=== PATIENT | female | born 1995 | race Caucasian/White ===

== ENCOUNTER 2018-06-28 21:34 | Emergency (ER) | payer BC ==
[~2018-06-28] VITALS: Ht 165.1 cm; Wt 95.3 kg
--- OUTSIDE RECORDS SUMMARY | 2018-06-28 21:38 | XMS REPORT | Summary of Care ---
Author Author [facility] Organization [facility] Address Unknown Phone Unavailable Encounter HQ Shira(MARILEE) [id number] Date(s): 08/31/16 - 08/31/16 [facility] [address] [employer] provided by [facility] [place] [address]- Discharge Diagnosis: Allergic reaction Discharge Disposition: Home or Self Care Attending Physician: Patria Painter MD Vital Signs 1 2 3 Most recent to oldest [Reference Range]: 165.1 cm (08/31/16 6:20 PM) Height 97.2 DegF (08/31/16 11:08 PM) 97.6 DegF (08/31/16 9:42 PM) 98.8 DegF (08/31/16 6:20 PM) Temperature Oral [96.4-99.1 DegF] 112/68 mmHg (08/31/16 11:08 PM) 115/74 mmHg (08/31/16 9:42 PM) 120/81 mmHg (08/31/16 6:20 PM) Blood Pressure [90-140/60-90 mmHg] 18 BRMIN (08/31/16 11:08 PM) 18 BRMIN (08/31/16 9:42 PM) 16 BRMIN (08/31/16 6:20 PM) Respiratory Rate [14-20 BRMIN] 98 bpm (08/31/16 11:08 PM) 103 bpm *HI* (08/31/16 9:42 PM) 100 bpm (08/31/16 6:20 PM) Peripheral Pulse Rate [60-100 bpm] 81.818 kg (08/31/16 6:20 PM) Weight 30.02 m2 (08/31/16 6:20 PM) Body Mass Index Problem List No data available for this section Allergies, Adverse Reactions, Alerts Substance Reaction Severity Status penicillins Active Medications Benadryl 25 mg oral tablet 25 mg=1 tab, PO, TID, X 5 day, # 15 tab, 0 Refill(s) Start Date: 08/31/16 Stop Date: 09/05/16 Status: Ordered Benadryl 25 mg oral tablet 25 mg=1 tab, PO, QID, X 5 day, # 20 tab, 0 Refill(s) Start Date: 08/31/16 Stop Date: 09/05/16 Status: Ordered EpiPen Auto-Injector 0.3 mg injectable kit 0.3 mg, IM, ONCE, # 2 pen(s), 0 Refill(s) Start Date: 08/31/16 Status: Ordered famotidine 20 mg, 2 mL, Route: IVP, Drug form: INJ, ONCE, Dosing Weight 81.818, kg, Priorit y: STAT, Start date: 08/31/16 19:06:00 CDT, Stop date: 08/31/16 19:06:00 CDT Notes: (Same as: Pepcid)Can be dilute in 5-10cc NS IVP: Slow IV push over at le ast 2 minutes. Start Date: 08/31/16 Stop Date: 08/31/16 Status: Completed famotidine 10 mg oral tablet 10 mg=1 tab, PO, BID, # 10 tab, 0 Refill(s) Start Date: 08/31/16 Stop Date: 09/05/16 Status: Ordered famotidine 10 mg oral tablet 10 mg=1 tab, PO, BID, # 10 tab, 0 Refill(s) Start Date: 08/31/16 Stop Date: 09/05/16 Status: Ordered Medrol Dosepak 4 mg oral tablet See Instructions, PO, Take by mouth as directed on label., # 1 Pack, 0 Refill(s) Start Date: 08/31/16 Stop Date: 09/06/16 Status: Ordered methylPREDNISolone SODium SUCCinate 125 mg, Route: IVP, ONCE, Dosing Weight 81.818, kg, Priority: STAT, Start date: 08/31/16 19:08:00 CDT, Stop date: 08/31/16 19:08:00 CDT Start Date: 08/31/16 Stop Date: 08/31/16 Status: Completed Results No data available for this section Immunizations No data available for this section Procedures No data available for this section Social History Social History Type Response Smoking Status Light tobacco smoker; Ready to change: No; Concerns about tobacco use in household: No; Exposure to Tobacco Smoke None; Cigarette Smoking Last 365 Days No; Reg Smoking Cessation Counseling No Assessment and Plan No data available for this section
--- OUTSIDE RECORDS SUMMARY | 2018-06-28 21:38 | XMS REPORT | Clinical Summary ---
Author Author [facility] Address Unknown Phone Unavailable Care Team Providers Care Operations Recruiter Name Role Phone Asked, No Pcp PCP Unavailable Allergies No Known Allergies Medications No known medications Active Problems Not on file Social History Date Tobacco Use Types Packs/Day Years Used Never Assessed Sex Assigned at Date Recorded Not on file Industry Job Start Date Occupation Not on file Not on file Not on file Travel End Travel History Travel Start No recent travel history available. Last Filed Vital Signs Not on file Plan of Treatment Health Maintenance Due Date Last Done Comments CHLAMYDIA SCREENING 2012 CERVICAL CANCER SCREENING 2017 INFLUENZA VACCINE 01/07/2018 Results Not on fileafter 06/27/2017 Insurance Payer Benefit Subscriber ID Type Phone Address Plan / Group BCBS BCBS xxxxxxxxxxxx PPO CHOICE PPO/FEDERA L EMPL PPO Advance Directives Patient has advance care planning documents on file. For more information, gloria lópez contact: Dom Perez [address] [place] [address]
--- OUTSIDE RECORDS SUMMARY | 2018-06-28 21:38 | XMS REPORT | Continuity of Care Document ---
Author Author [facility] Address Unknown Phone Unavailable Problems Problem Status Onset Date Classification Date Reported Comments Source Discharge Diagnosis: Allergic reaction 08/31/2016 09/03/2016 [facility] SEIZURES Active 08/31/2016 [facility] Medications Medication Details Route Status Patient Instructions Ordering Provider Order Date Source Famotidine 10 MG Oral Tablet 10 mg=1 tab, PO, BID, # 10 tab, 0 Refill(s) Active 09/01/2016 [facility] Diphenhydramine Hydrochloride 25 MG Oral Tablet [Benadryl] 25 mg=1 tab, PO, QID, X 5 day, # 20 tab, 0 Refill(s) Active 09/01/2016 [facility] Famotidine 10 MG Oral Tablet 10 mg=1 tab, PO, BID, # 10 tab, 0 Refill(s) Active 09/01/2016 [facility] 0.3 ML Epinephrine 1 MG/ML Prefilled Syringe [Epipen] 0.3 mg, IM, ONCE, # 2 pen(s), 0 Refill(s) Active 09/01/2016 [facility] Diphenhydramine Hydrochloride 25 MG Oral Tablet [Benadryl] 25 mg=1 tab, PO, TID, X 5 day, # 15 tab, 0 Refill(s) Active 09/01/2016 [facility] {21 (Methylprednisolone 4 MG Oral Tablet [Medrol]) } Pack [Medrol Dosepak] See Instructions, PO, Take by mouth as directed on label., # 1 Pack, 0 Refill(s) Active 09/01/2016 [facility] methylPREDNISolone SODium SUCCinate 125 mg, Route: IVP, ONCE, Dosing Weight 81.818, kg, Priority: STAT, Start date: 08/31/16 19:08:00 CDT, Stop date: 08/31/16 19:08:00 CDT Inactive 09/01/2016 [facility] Famotidine 20 mg, 2 mL, Route: IVP, Drug form: INJ, ONCE, Dosing Weight 81.818, kg, Priority: STAT, Start date: 08/31/16 19:06:00 CDT, Stop date: 08/31/16 19:06:00 CDTNotes: (Same as: Pepcid) Can be dilute in 5-10cc NS IVP: Slow IV push over at least 2 minutes. Inactive 09/01/2016 [facility] Allergies, Adverse Reactions, Alerts Substance Category Reaction Severity Reaction type Status Date Reported Comments Source penicillins Assertion Drug allergy Active [facility] Immunizations Immunization Date Given Site Status Last Updated Comments Source Results Order Name Results Value Reference Range Date Interpretation Comments Source Vital Signs Vital Sign Value Date Comments Source Temperature Oral (F) 97.2 F 09/01/2016 [facility] Systolic (mm Hg) 112 09/01/2016 [facility] Diastolic (mm Hg) 68 09/01/2016 [facility] Heart Rate 98 09/01/2016 [facility] Respitory Rate 18 09/01/2016 [facility] Systolic (mm Hg) 115 09/01/2016 [facility] Diastolic (mm Hg) 74 09/01/2016 [facility] Respitory Rate 18 09/01/2016 [facility] Heart Rate 103 09/01/2016 [facility] Temperature Oral (F) 97.6 F 09/01/2016 [facility] BMI Calculated 30.02 08/31/2016 [facility] Weight 81.818 08/31/2016 [facility] Temperature Oral (F) 98.8 F 08/31/2016 [facility] Height 165.1 cm 08/31/2016 [facility] Respitory Rate 16 08/31/2016 [facility] Systolic (mm Hg) 120 08/31/2016 [facility] Diastolic (mm Hg) 81 08/31/2016 [facility] Heart Rate 100 08/31/2016 [facility] Encounters Location Location Details Encounter Type Encounter Number Reason For Visit Attending Provider ADM Date DC Date Status Source [facility] Emergency [id number] Patria Painter 08/31/2016 09/01/2016 [facility] Procedures Procedure Code Date Perfomer Comments Source
[2018-06-28] MEDS ORDERED: ONDANSETRON HCL 4 MG ORAL DISINTEGRATING TAB PO ONE (22:15)
[2018-06-28 22:45] LABS: BACTERIA,URINE MODERATE /HPF; BILIRUBIN,URINE NEGATIVE (NEGATIVE); CLARITY,URINE CLOUDY (CLEAR); COLOR,URINE YELLOW (YELLOW); EPITHELIAL CELLS,URINE FEW /LPF; KETONES,URINE NEGATIVE (NEGATIVE); LEUKOCYTE ESTERASE ,URINE TRACE (NEGATIVE); NITRITE,URINE NEGATIVE (NEGATIVE); PROTEIN,URINE DIPSTICK 1+ (NEGATIVE); RBC,URINE 21-50 /HPF (0-5); URINE UROBILINOGEN 0.2 mg/dL (0.2 - 1); WBC,URINE (MAN) 21-50 /HPF (0-5)
[2018-06-28 22:46] LABS: PREGNANCY TEST, URINE NEGATIVE (NEGATIVE); RENAL EPITHELIAL CELLS,URINE FEW; TRANSITIONAL EPI CELLS,URINE FEW
--- NOTE | 2018-06-28 23:39 | Diagnostic Imaging Report ---
EXAM: CT ABDOMEN AND PELVIS without IV CONTRAST INDICATION: Vomiting, abdominal pain right flank pain COMPARISON: None TECHNIQUE: The abdomen and pelvis were scanned using a multidetector helical scanner. Coronal and sagittal reformations were obtained. Dose modulation, iterative reconstruction, and/or weight based adjustment of the mA/kV was utilized to reduce the radiation dose to as low as reasonably achievable. Routine protocol performed. IV Contrast: None Oral Contrast: None CTDIvol has been reviewed. It is below the limits set by the Radiation Protocol Committee (RPC). FINDINGS: LOWER THORAX: No consolidations LIVER: No masses BILIARY: Cholelithiasis without cholecystitis. SPLEEN: No masses PANCREAS: No masses ADRENALS: No nodules RIGHT KIDNEY: No nephroureterolithiasis or hydronephrosis. LEFT KIDNEY: No nephroureterolithiasis or hydronephrosis. GI TRACT: No wall thickening or obstruction. Normal appendix. VESSELS: None PERITONEUM/RETROPERITONEUM: No free air or fluid LYMPH NODES: No lymphadenopathy REPRODUCTIVE ORGANS: Normal BLADDER: Normal SOFT TISSUES: Normal BONES: No suspicious bone lesions. IMPRESSION: No nephroureterolithiasis or hydronephrosis. Cholelithiasis without cholecystitis. Signed by: Dr. Brooklynn Arnold M.D. on 06/28/2018 11:36 PM
[2018-06-29 00:02] VITALS: BP 118/71
== END 2018-06-29 00:10 | disposition home or self-care (01) ==
LOC: ER 21:34
DX: R10.30 Lower abdominal pain, unspecified (principal); R11.2 Nausea with vomiting, unspecified; N30.91 Cystitis, unspecified with hematuria
CPT/HCPCS: 74176; 81001; 81025; 99282

== ENCOUNTER 2018-08-02 15:19 | Emergency (ER) | payer BC ==
[~2018-08-02] VITALS: Ht 165.1 cm; Wt 95.3 kg
--- OUTSIDE RECORDS SUMMARY | 2018-08-02 15:22 | XMS REPORT | Clinical Summary ---
Author Author [facility] Address Unknown Phone Unavailable Care Team Providers Care Loss Prevention Operations Manager Name Role Phone Asked, No Pcp PCP [...] INFLUENZA VACCINE 01/07/2018 Results Not on fileafter 08/01/2017 Insurance Payer Benefit Subscriber ID Type Phone Address Plan / Group BCBS BCBS xxxxxxxxxxxx PPO CHOICE PPO/FEDJOSESITO L EMPL PPO Advance Directives Patient has advance care planning documents on file. For more information, gloria lópez contact: Dom Perez [address] [place] [address]
--- OUTSIDE RECORDS SUMMARY | 2018-08-02 15:22 | XMS REPORT ---
Author Author [facility] Address Unknown Phone Unavailable Care Team Providers Care Clinical Business Manager Name Role Phone Jaylen WRIGHT Unavailable Unavailable Problems This patient has no known problems. Allergies, Adverse Reactions, Alerts This patient has no known allergies or adverse reactions. Medications This patient has no known medications. Results Test Description Test Time Test Comments Text Results Atomic Results Result Comments CT ABDOMEN/PELVIS WO 2018-06-28 23:11:00 [place] [id number] Patient Name: USMAN RÍOS MR #: [id number] : 1995 Age/Sex: 22/F Req #: [id number] Adm Physician: Ordered by: JORGE WRIGHT MD Report #: [id number] Location: ER Room/Bed: Procedure: [id number] CT/CT ABDOMEN/PELVIS WO Exam Date: 06/28/18 Exam Time: 2312 REPORT STATUS: Signed EXAM: CT ABDOMEN AND PELVIS without IV CONTRAST I NDICATION: Vomiting, abdominal pain right flank pain COMPARISON: None TECHNIQUE: The abdomen and pelvis were scanned using a multidetector helical scanner. Coronal and sagittal reformations were obtained. Dose modulation, iterative reconstruction, and/or weight based adjustment of the mA/kV was utilized to reduce the radiation dose to as low as reasonably achievable. Routine protocol performed. IV Contrast: None Oral Contrast: None CTDIvol has been reviewed. It is below the limits set by the Radiation Protocol Committee (RPC). FINDINGS: LOWER THORAX: No consolidations LIVER: No masses BILIARY: Cholelithiasis without cholecystitis. SPLEEN: No masses PANCREAS: No masses ADRENALS: No nodules RIGHT KIDNEY: No nephroureterolithiasis or hydronephrosis. LEFT KIDNEY: No nephroureterolithiasis or hydronephrosis. GI TRACT: No wall thickening or obstruction. Normal appendix. VESSELS: None PERITONEUM/RETROPERITONEUM: No free air or fluid LYMPH NODES: No lymphadenopathy REPRODUCTIVE ORGANS: Normal BLADDER: Normal SOFT TISSUES: Normal BONES: No suspicious bone lesions. IMPRESSION: No nephroureterolithiasis or hydronephrosis. Cholelithiasis without cholecystitis. Signed by: Dr. Edgardo Mlceod M.D. on 06/28/2018 11:36 PM Dictated By: EDGARDO MCLEOD MD [id number] Transcribed By: NIR on 06/28/18 5311 COPY TO: JORGE WRIGHT MD
[2018-08-02] MEDS ORDERED: ACETAMINOPHEN/CODEINE ELIX 120-12 MG/5 ML UDC PO ONE (15:45)
[2018-08-02] MEDS ORDERED: DEXAMETHASONE SOD PHOS 10 MG/1 ML VIAL INJ ONE (15:45)
[2018-08-02] MEDS ORDERED: CEFTRIAXONE SOD 1 GM VIAL IM NR (16:15)
[2018-08-02] MEDS ORDERED: LIDOCAINE HCL 1% 2 ML AMP ONE (16:22)
[2018-08-02 16:38] LABS: STREPTOCOCCUS GRP A ANTIGEN NEGATIVE (NEGATIVE)
[2018-08-02 16:46] LABS: INFLUENZAE A&B ANTIGEN (RAPID) NEGATIVE (NEGATIVE)
--- NOTE | 2018-08-02 16:52 | NUR ---
PATIENT WITH WELTS, ITCHING. AFTER ROCEPHIN/DECADRON INJECTION RE-EVALUATED BY SID SERRATO/ROMEO HERRERA
[2018-08-02] MEDS ORDERED: DIPHENHYDRAMINE HCL 25 MG CAP PO NR (17:00)
[2018-08-02] MEDS ORDERED: FAMOTIDINE 20 MG TAB PO ONE (17:00)
--- NOTE | 2018-08-02 17:52 | NUR ---
RE-EVALUATED BY SID BURRIS
== END 2018-08-02 17:55 | disposition home or self-care (01) ==
LOC: ER 15:19
DX: H66.001 Acute suppurative otitis media without spontaneous rupture of ear drum, right ear (principal); J02.0 Streptococcal pharyngitis
CPT/HCPCS: 83518; 87070; 87400; 99283; J0696; J1100; J2001

== ENCOUNTER 2018-09-16 12:24 | Emergency (ER) | payer BC ==
[~2018-09-16] VITALS: Ht 165.1 cm; Wt 95.3 kg
--- OUTSIDE RECORDS SUMMARY | 2018-09-16 12:26 | XMS REPORT | Clinical Summary ---
Author Author [facility] Address Unknown Phone Unavailable Care Team Providers Care Rubber Goods Assembler Name Role Phone Asked, No Pcp PCP [...] 2012 CERVICAL CANCER SCREENING 2017 INFLUENZA VACCINE 01/07/2019 Results Not on fileafter 09/15/2017 Insurance Payer Benefit Subscriber ID Type Phone Address Plan / Group BCBS BCBS xxxxxxxxxxxx PPO CHOICE PPO/FEDJOSESITO L EMPL PPO Advance Directives Patient has advance care planning documents on file. For more information, gloria lópez contact: Dom Perez [address] [place] [address]
[2018-09-16] MEDS ORDERED: HYDROCODONE/APAP 10MG-325MG TAB PO ONE (14:15)
[2018-09-16] MEDS ORDERED: CEFTRIAXONE SOD 1 GM VIAL IM ONE (14:15)
[2018-09-16] MEDS ORDERED: AZITHROMYCIN 250 MG TAB PO ONE (14:15)
[2018-09-16 14:25] LABS: CLARITY,URINE SL CLOUDY (CLEAR); COLOR,URINE YELLOW (YELLOW)
[2018-09-16 14:26] LABS: BILIRUBIN,URINE NEGATIVE (NEGATIVE); KETONES,URINE NEGATIVE (NEGATIVE); LEUKOCYTE ESTERASE ,URINE TRACE (NEGATIVE); NITRITE,URINE NEGATIVE (NEGATIVE); PROTEIN,URINE DIPSTICK TRACE (NEGATIVE); URINE UROBILINOGEN 0.2 mg/dL (0.2 - 1)
[2018-09-16 14:29] LABS: PREGNANCY TEST, URINE NEGATIVE (NEGATIVE)
[2018-09-16 14:39] LABS: BACTERIA,URINE MANY /HPF; EPITHELIAL CELLS,URINE MODERATE /LPF; WBC,URINE (MAN) 0-5 /HPF (0-5)
== END 2018-09-16 15:04 | disposition home or self-care (01) ==
LOC: ER 12:24
DX: N76.4 Abscess of vulva (principal); R30.0 Dysuria; Z88.0 Allergy status to penicillin; Z88.8 Allergy status to other drugs, medicaments and biological substances
CPT/HCPCS: 81001; 81025; 87086; 99284; J0696

== ENCOUNTER 2020-05-05 09:11 | Emergency (ER) | payer BC ==
[~2020-05-05] VITALS: Ht 165.1 cm; Wt 111.1 kg
[~2020-05-05 09:11] MED LIST: ALLEGRA ALLERG180 MG PO; BENADRYL25 M1 PO; KEFLEX500 MG PO
[2020-05-05] MEDS ORDERED: SODIUM CHLORIDE 0.9% 1000ML 1,000 ML IV SCH (09:30)
[2020-05-05] MEDS ORDERED: ACETAMINOPHEN 325 MG TAB PO ONE (09:30)
--- NOTE | 2020-05-05 09:30 | Emergency Department Note ---
History of Present Illnes History of Present Illness Chief Complaint: COVID PUI History of Present Illness This is a 24 year old female Chief Complaint Comment Patient in from home with complaints of headache, sore throat, chest pain and difficulty breathing that started about 2 days ago. Patient's voice sounds weak and scratchy. Moaning when breathing. Historian: Patient Arrival Mode: Car Pipe Organ Builder Required: No Onset (how long ago): day(s) (2) Location: Chest Quality: Sharp Radiation: Reports non-radiation Severity: mild Onset quality: gradual Duration (how long): day(s) (2) Timing of current episode: constant Progression: worsening Chronicity: new Context: Denies recent illness, Denies recent surgery Relieving factors: none Exacerbating factors: none Associated symptoms: Reports denies other symptoms Treatments prior to arrival: none Past Medical/Family History Physician Review I have reviewed the patient's past medical and family history. Any updates have been documented here. Past Medical History Recent Fever: Yes Clinical Suspicion of Infectio: Yes New/Unexplained Change in Ment: No Past Medical History: Asthma, Anxiety, Depression Other Medical History: HPV Past Surgical History: T&A Other Surgery: TONSILLECTOMY ADENDIOECTOMY ACL AND MEDIAL MENSICUS REPAIR Social History Physically hurt or threatened: No Other Last Tetanus: UTD Review of Systems Review of Systems Constitutional: Reports no symptoms EENTM: Reports as per HPI, Reports throat pain Cardiovascular: Reports chest pain Respiratory: Reports as per HPI Gastrointestinal: Reports no symptoms Genitourinary: Reports no symptoms Musculoskeletal: Reports no symptoms Integumentary: Reports no symptoms Neurological: Reports no symptoms Psychological: Reports no symptoms Endocrine: Reports no symptoms Hematological/Lymphatic: Reports no symptoms Physical Exam Related Data Allergies: Coded Allergies: Penicillins (Verified Allergy, Severe, SWELLING, 09/16/18) clindamycin (Verified Allergy, Intermediate, rash, 05/05/20) loratadine (Verified Allergy, Intermediate, HIVES, 09/16/18) Triage Vital Signs Vital Signs Date Time Temp Pulse Resp B/P (MAP) Pulse Ox O2 Delivery O2 Flow Rate FiO2 05/05/20 09:16 98.5 90 17 112/89 100 Room Air Vital signs reviewed: Yes Physical Exam CONSTITUTIONAL Constitutional: Present well-developed, Present well-nourished HENT HENT: Present normocephalic, Present atraumatic, Present oropharynx clear/moist, Present nose normal HENT L/R: Present left ext ear normal, Present right ext ear normal EYES Eyes: Reports PERRL, Reports conjunctivae normal NECK Neck: Present ROM normal PULMONARY Pulmonary: Present effort normal, Present breath sounds normal CARDIOVASCULAR Cardiovascular: Present regular rhythm, Present heart sounds normal, Present capillary refill normal, Present normal rate GASTROINTESTINAL Abdominal: Present soft, Present nontender, Present bowel sounds normal GENITOURINARY Genitourinary: Present exam deferred SKIN Skin: Present warm, Present dry MUSCULOSKELETAL Musculoskeletal: Present ROM normal NEUROLOGICAL Neurological: Present alert, Present oriented x 3, Present no gross motor or sensory deficits PSYCHOLOGICAL Psychological: Present mood/affect normal, Present judgement normal Results Laboratory Lab results reviewed: Yes Imaging Imaging results reviewed: Yes Diagnostics Tests Diagnostic test(s) reviewed: Yes Procedures 12 Lead ECG Interpretation ECG Interpretation : Rhythm: sinus rhythm Rate: normal QRS axis: normal ST segments normal: Yes T waves normal: Yes Clinical Impression: normal ECG Assessment & Plan Medical Decision Making MDM 24-year-old female with no reported past medical history presents emergency department for sore throat and chest pain 2 days. She is a current every day smoker. Vital signs stable, within normal limits. Examination shows no stridor, full range of motion neck, benign oropharynx. Doubt retropharyngeal abscess, epiglottitis, other emergent pathology in the neck. Cardiopulmonary workup and d-dimer are significant for strep pharyngitis. Rx Azithro since patient is allergic to penicillin and clinda. Reassessment Reassessment time: 11:19 Reassessment Well appearing, NAD Assessment & Plan Final Impression: (1) Strep pharyngitis Depart Disposition: HOME, SELF-CARE Last Vital Signs Date Time Temp Pulse Resp B/P (MAP) Pulse Ox O2 Delivery O2 Flow Rate FiO2 05/05/20 09:16 98.5 90 17 112/89 100 Room Air Home Meds Reported Medications Cephalexin Monohydrate (KEFLEX) 500 Mg Capsule, PO TID for 15 Days 06/15/19 Fexofenadine Hcl (EBENEZER ALLERGY) 180 Mg Tablet, 180 MG PO DAILY 06/14/19 Diphenhydramine Hcl (BENADRYL) 25 Mg Capsule, 50 MG PO Q6H PRN for ITCHING 06/14/19 Medications in the ED Sodium Chloride 1,000 ml @ 0 mls/hr Q0M IV ; Start 05/05/20 at 09:30; Stop 05/05/20 at 10:29 Acetaminophen 975 mg ONCE ONCE PO ; Start 05/05/20 at 09:30; Stop 05/05/20 at 09:31 JENNIFER SAUNDERS MD May 05, 2020 09:30
[2020-05-05 09:33] LABS: BASOPHILS # (AUTO) 0.1 (0.0-0.1); BASOPHILS % 0.8 % (0.0-1.0); EOSINOPHILS # (AUTO) 0.5 (0.0-0.4); EOSINOPHILS % 4.5 % (0.0-6.0); HEMATOCRIT 37.3 % (34.2-44.1); HEMOGLOBIN 11.8 g/dL (12.0-16.0); LYMPHOCYTES # (AUTO) 3.1 (1.0-3.2); LYMPHOCYTES % 30.3 % (18.0-39.1); MEAN CORPUSCULAR HGB CONC 31.6 g/dL (31-35); MEAN CORPUSCULAR VOLUME 88.4 fL (81-99); MONOCYTES # (AUTO) 0.8 (0.2-0.8); MONOCYTES % 7.6 % (4.4-11.3); NEUTROPHILS # (AUTO) 5.7 (2.1-6.9); NEUTROPHILS % 56.6 % (38.7-80.0); PLATELET COUNT 343 x10e3/uL (140-360); RED BLOOD COUNT 4.22 x10e6/uL (3.6-5.1); RED CELL DISTRIBUTION WIDTH 14.1 % (11.7-14.4)
--- OUTSIDE RECORDS SUMMARY | 2020-05-05 09:41 | XMS REPORT | Clinical Summary ---
Author Author [facility] Address Unknown Phone Unavailable Care Team Providers Care Legal Writing Professor Name Role Phone Asked, No Pcp PCP Unavailable Allergies No Known Active Allergies Medications No known medications Active Problems Not on file Social History Date Tobacco Use Types Packs/Day Years Used Never Assessed Sex Assigned at Date Recorded Not on file Last Filed Vital Signs Not on file Plan of Treatment Health Maintenance Due Date Last Done Comments CHLAMYDIA SCREENING 01/18/2017 01/19/2016 CERVICAL CANCER SCREENING 2017 INFLUENZA VACCINE 01/08/2020 Results Not on fileafter 05/05/2019 Insurance Type Payer Benefit Subscriber ID Effective Phone Address Plan / Dates Group PPO BCBS BCBS [id number] 2016- CHOICE Present PPO/[place] PPO Advance Directives For more information, please contact: [phone] 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
--- OUTSIDE RECORDS SUMMARY | 2020-05-05 09:41 | XMS REPORT | Continuity of Care Document ---
Author Author [facility] t Organization [facility] Address [address] [place] [address] Phone Unavailable Care Team Providers Care Land Surveying Party Chief Name Role Phone NO, PCP PCP Unavailable PJ BOJORQUEZ Attphys Unavailable Lenore BENAVIDES, Pj Sousa Attphys Keyana BENAVIDES, David Thomason Attphys Zen BENAVIDES, Aleyda Attphys SID ZUNIGA Attphys Unavailable Jaylen WRIGHT Attphys Unavailable Sharlene Painter Attphys PJ BOJORQUEZ Admphys Unavailable Payers Payer Name Policy Type Policy Number Effective Date Expiration Date [employer] BLUE CROSS/BLUE SHIELDBCBS PPO POS EPO [id number], [place] [address]VTM [id number] 2019 00:00:00 [facility] [employer] [place] Ppo [id number] [address] [facility] Problems Condition Name Condition Details Condition Category Status Onset Date Resolution Date Last Treatment Date Treating Clinician Comments Source Cholecystitis Cholecystitis Disease Active 2019-06-30 00:00:00 [facility] SEIZURES SEIZ URES Active 08/31/2016 [facility] Diagnosis Active 2016-08-31 00:00:00 2016-09-06 13:23:00 [facility] All[facility], unspecified, initial encounter Allergy, unspecified, initial encounter 08/31/2016 09/03/2016 [facility] Problem 2016-08-31 05:00:00 2016-09-03 01:45:21 2016-09-03 01:45:21 [facility] Allergies, Adverse Reactions, Alerts Allergy Name Allergy Type Status Severity Reaction(s) Onset Date Inacti ve Date Treating Clinician Comments Source Penicillins Drug Allergy Active Shortness Of Breath 2019-06-30 00:00:00 Hives; throat swelling [facility] Ceftriaxone Drug Allergy Active Shortness Of Breath 2019-06-30 00:00:00 Throat swelling; hives [facility] Loratadine Propensity to adverse reactions Active 2019-06-10 1 00:00:00 [facility] cephalexin DA Active U 2019-06-18 00:00:00 [facility] ceftriaxone DA Active U 2019-06-18 00:00:00 [facility] Penicillins DA Active PR 2018-12-18 00:00:00 [facility] loratadine DA Active U 2018-12-18 00:00:00 [facility] loratadine DA Active U 2018-12-17 00:00:00 [facility] Penicillin Allergy to Substance Active Severe SWELLING 2018-09-16 00:0 0:00 [facility] Loratadine Allergy to Substance Active Moderate HIVES 2018-09-16 00:00:0 0 [facility] Penicillins DA Active PR 2014-11-23 00:00:00 [facility] penicillins penicillins Active [facility] Social History Social Habit Start Date Stop Date Quantity Comments Source History SDOH Alcohol Std Drinks [facility] History SDOH Alcohol Binge [facility] ASSERTION [facility] Sex Assigned At [facility] Cigarettes smoked current (pack per day) - Reported 00:00:00 2019-07-01 00:00:00 [facility] Cigarette pack-years 2019-07-01 00:00:00 2019-07-01 00:00:00 [facility] Tobacco use and exposure 2019-07-01 00:00:00 2019-07-01 00:00:00 Cecile seth used [facility] Alcohol intake 2019-07-01 00:00:00 2019-07-01 00:00:00 [facility] Alcohol Frequency 2019-06-30 00:00:00 2019-06-30 00:00:0 0 1 [facility] Smoking Status Start Date Stop Date Source Current every day smoker 2019-07-01 00:00:00 [facility] Social History 2016-09-01 00:10:37 Lainey abrry Medications Ordered Medication Name Filled Medication Name Start Date Stop Da te Current Medication? Ordering Clinician Indication Dosage Frequency Signature (SIG) Comments Components Source escitalopram oxalate (LEXAPRO) 10 MG tablet 2019-06-30 19:31:08 Yes 10mg QD Take 10 mg by mouth daily. [facility] acetaminophen-codeine (TYLENOL #3) 300-30 mg per tablet 2019-06-30 00:00:00 2019-07-10 23:59:00 No 1{tbl} Take 1 tablet by mouth every 4 (four) hours as needed for up to 10 days. Max Daily Amount: 6 tablets [facility] Famotidine 10 MG Oral Tablet 2016-09-01 03:41:00 Yes 10 mg = 1 tab, PO, BID, # 10 tab, 0 Refill(s) Lainey Kate Diphenhydramine Hydrochloride 25 MG Oral Tablet [Benadryl] 2016-09-01 03:41:00 Yes 25 mg = 1 tab, PO, QID, X 5 day , # 20 tab, 0 Refill(s) Lainey Kate Famotidine 10 MG Oral Tablet 2016-09-01 03:18:00 Yes 10 mg = 1 tab, PO, BID, # 10 tab, 0 Refill(s) Lainey Kate 0.3 ML Epinephrine 1 MG/ML Prefilled Syringe [Epipen] 2016-09-01 03:17:00 Yes 0.3 mg, IM, ONCE, # 2 pen(s), 0 Refill(s ) Lainey Kate Diphenhydramine Hydrochloride 25 MG Oral Tablet [Benadryl] 2016-09-01 03:17:00 Yes 25 mg = 1 tab, PO, TID, X 5 day , # 15 tab, 0 Refill(s) Lainey Humble {21 (Methylprednisolone 4 MG Oral Tablet [Medrol]) } Pack [M edrol Dosepak] 2016-09-01 03:17:00 Yes See Instructions, PO, Take by mouth as directed on label., # 1 Pack, 0 Refill(s) Lainey [address] methylPREDNISolone SODium SUCCinate 2016-09-01 00:08:00 No 125 mg, Route: IVP, ONCE, Dosing Weight 81.818, kg, Priority: STAT, Start date: 08/31/16 19:08:00 CDT, Stop date: 08/31/16 19:08:00 CDT Lainey [facility]ble Famotidine 2016-09-01 00:06:00 No Notes: (Same as: Pepcid) Can be dilute in 5-10cc NS IVP: Slow IV push over at least 2 minutes. Lainey Kate Cephalexin Monohydrate (Keflex) 500 Mg Capsule Cephale sruthi Monohydrate (Keflex) 500 Mg Capsule Yes Three Times A Day [facility] Diphenhydramine Hcl (Benadryl) 25 Mg Capsule Diphenhyd ramine Hcl (Benadryl) 25 Mg Capsule Yes 50 Every 6 Hours as needed for Itching [facility] Fexofenadine Hcl (Gabrielle Allergy) 180 Mg Tablet Fexof enadine Hcl (Gabrielle Allergy) 180 Mg Tablet Yes 180 Daily [facility] Vital Signs Vital Name Observation Time Observation Value Comments Source Systolic blood pressure 2019-06-30 16:25:00 127 mm[Hg] [facility] Diastolic blood pressure 2019-06-30 16:25:00 70 mm[Hg] [facility] Heart rate 2019-06-30 16:25:00 73 /min [facility] Body temperature 2019-06-30 16:25:00 37.22 Misty [facility] Respiratory rate 2019-06-30 16:25:00 14 /min [facility] Oxygen saturation in Arterial blood by Pulse oximetry 06-30 16:25:00 100 /min [facility] Body weight 2019-06-30 12:55:00 103.193 kg [facility] BMI 2019-06-30 12:55:00 37.86 kg/m2 [facility] Body height 2019-06-30 12:53:00 165.1 cm [facility] Temperature Oral (F) 2016-09-01 04:08:00 97.2 F [facility] Systolic (mm Hg) 2016-09-01 04:08:00 [facility] Diastolic (mm Hg) 2016-09-01 04:08:00 [facility] Heart Rate 2016-09-01 04:08:00 [facility] Respitory Rate 2016-09-01 04:08:00 [facility] Systolic (mm Hg) 2016-09-01 02:42:00 [facility] Diastolic (mm Hg) 2016-09-01 02:42:00 [facility] Respitory Rate 2016-09-01 02:42:00 [facility] Heart Rate 2016-09-01 02:42:00 [facility] Temperature Oral (F) 2016-09-01 02:42:00 97.6 F [facility] BMI Calculated 2016-08-31 23:20:00 [facility] Weight 2016-08-31 23:20:00 [facility] Temperature Oral (F) 2016-08-31 23:20:00 98.8 F [facility] Height 2016-08-31 23:20:00 165.1 cm [facility] Respitory Rate 2016-08-31 23:20:00 [facility] Systolic (mm Hg) 2016-08-31 23:20:00 [facility] Diastolic (mm Hg) 2016-08-31 23:20:00 [facility] [place] Heart Rate 2016-08-31 23:20:00 [facility] Procedures Procedure Date / Time Performed Performing Clinician [facility] e TISSUE EXAM 2019-06-30 15:04:00 Lars Bojorquez [facility] LAPAROSCOPY,CHOLECYSTECTOMY 2019-06-30 14:05:00 Lars Bojorquez [facility] POCT , URINE 2019-06-30 13:15:00 Travis Matute [facility] Computed tomography of brain without radiopaque contrast 00:00:00 MELLO MILLAN [facility] CT of abdomen and pelvis without contrast 2019-06-12 00:00:00 VA DM GUZMÁN [facility] US Gallbladder 2019-06-12 00:00:00 DM BREEN [facility] Plan of Care Planned Activity Planned Date Details Comments Source Future Scheduled Test 2020-02-08 00:00:00 INFLUENZA VACCINE (#1) [code = INFLUENZA VACCINE (#1)] [facility] Future Scheduled Test 2020-01-08 00:00:00 INFLUENZA VACCINE [code = INFLUENZA VACCINE] [facility] Future Scheduled Test 2017 00:00:00 Screening for monica gnant neoplasm of cervix (procedure) [code = 916424505] [facility] Future Scheduled Test 2017 00:00:00 Screening for monica gnant neoplasm of cervix (procedure) [code = 253958169] [facility] Future Scheduled Test 2017-01-18 00:00:00 CHLAMYDIA SCREENIN G [code = CHLAMYDIA SCREENING] [facility] Future Scheduled Test 2016 00:00:00 Lipid panel (proce dure) [code = 14800891] [facility] r Future Scheduled Test 2002 00:00:00 PNEUMOCOCCAL VACCI NE 0-64 YRS (1 of 1 - PPSV23) [code = PNEUMOCOCCAL VACCINE 0-64 YRS (1 of - PPSV23)] [facility] Encounters Start Date/Time End Date/Time Encounter Type Admission Type Att[facility] Care Department Encounter ID Source 2019-06-12 23:25:00 2019-06-15 18:22:00 Discharged Inpatient 1 SID ZUNIGA [facility] [id number] [facility] 2018-09-16 12:24:00 2018-09-16 15:04:00 Departed Emergency Room [facility] [id number] [facility] 2018-08-02 15:19:00 2018-08-02 17:55:00 Departed Emergency Room [facility] [id number] [facility] 2018-06-28 21:34:00 2018-06-29 00:10:00 Departed Emergency Room 1 JORGE WRIGHT [facility] [id number] [facility] 2016-08-31 18:09:00 2016-08-31 23:09:00 Outpatient Patria Painter [facility] [id number] Results Test Description Test Time Test Comments Results Result Comments Source Tissue Exam 2019-07-02 11:09:00 Test Item Case Report (test code = 104) Surgical Pathology Repor t Case: [id number] Authorizing Provider: Lars Bojorquez MD Collected: 06/30/2019 1504 Ordering Location: [facility] PERI[facility] Received: 06/30/2019 1648 SERVICES Pathologist: Renu Chahal MD Specimen: Gallbladder, gallbladder and contents DIAGNOSIS (test code = 3220) v0dalGGlWMQch0xsWCYraXHoObCbQpEvMsDmAqwukPDlYGglsvLhIJaua1WgB3UbWoGtSAwwapRpXWCw AcoyrpumSADnDAU2uzRlSTQyDPdcKPOuFNpmMg6nbRXrfKzrGjJqFUPlw7ktcuKXzpqhoTi1m2kxMAVe BgK9aCWlGBatM4vgzwWnmHQhIBGmXIb1fD91UBWqbU 0ojRLxXFsrpmVlYHoigdZewpYzPsn6QMShU9odDYMwHKHpJ0FlCQ0oUCQpZqq3PBI1WYG7yFggy4Q4wI OsmSCwuEdlCbZmZkWyEBHIk3NmHKv1pIwhS2NtMXOkJmV0kQOtXWOmXXleKUWgOYYxqxH5oO70MKuwkx O3wGCgr3Jxs32xc966tQ6itOKvSLQ3OBPrPQTohKOb OCHdEZM3WZSdgBUgA9o8LgWobIMmD0V3GhEblBKfX8Y6WjFaeHNrK3O4QxYufSEqCAFjbUTeVc5ttBSl dZAbqg6mgo20SAK4a9DlxRdxAPP9MPT3DlPqWl2pkKVdHVDcCL1aElJjuVGpLUCmgk05aAtbGHorscJi bC4rVoAoPTXkfGAsRVClXS8akBSbDMBzmW8zmmomKQ KxUfCqiovyDNXbuHqpypViXx4jgFbyPVF9HNnlS3mczQ7aObC8GHaxY2wrrU4uTRn9DZgfkZZ9ZFIjrC 5bIN6dbxshn4yjWuFaWG4oxeajg1exNcCpYY1miju2s5dmIpNjUO1mvholo8dnAvYbZNplJWYptrzwCX Qnq0LsqliwAYKtq8GwL0HvnLmlN81hrGozP56rTDXj oPvxxN8zbVlmyN6aOeHoUyTcWXoxeCavuZEyerpyJTdpnfVmZWYaQOqiSOZwJOUmRuNleISpEEDzkwUa iGnyfO8eJzPyFgTdBCwumSXntmbyMSkztoCeUHHdPPwQWMmMFEHRDHWZVBPLGP4AGMNJL0WZU1LWABo5 XHBhclxxbFxwbGFpblxmMFxmczIwXHBsYWluXGYxXG BoVcVpIRThKUTkUFLNHo5QRZCeO0kYKBJXFWUTNAVLJqDVIGCICRIZN8nQVRrUPTcDR4wHIOCNEAPLOT 3NFAWDPFPVOC6YWCXcWHXqBLupMMFoVTIlEvVmaNAieLmdfwBzZFljv3FiGZfgZDYlPW5deGrtCFNvJF 0gQNTgJ2mahT1eeiy9NnYwZUCxUyM1BVGrfrS7Oek0 BUMoOPwel2kuv0CfZNUvGHr6tUljYcOjRDRne3mwnxKvJlWoBBXhGXXzOWMwaTMcR832q6hhu3rtsqOw fSI9OMLwPBY9ZZsvvvUpmzK0PJzthPDqNuV5NDrbzxTrAXqmskLurmOuBkg5XHVfK864TOI9qNyoj7df FFC6FNQrSARqFmHoNt7lhSUkA878CIWtZMDNTVHsxU w2KIFeggStvcXvfYOUr849C252r6saTXWnxcFfxIsSndeyx1rdX526LUUvjRSurzHsDlUoRGZjwTFwpZ O4YARbQO5gpxocMHbrQWvgVGBmiiL9JKGvkSGqJ3XrKSTnZW7helhzIET1YLmaTOBbOHY0QvScDCQzd2 Hyerq1GvRegj6elr96XHD7z0GbbPduBVA0RDT0EaPo Jt1zrSRqMOZyNR5xFcEoaZRzNRStbf98qFouSQvdZVU3DAMsqxGpm9Jed3bqIlEumyXqZ3vmK9CwAEEg LUQmZBPzKvUojoYrj5Wuw4LldOKaqCu7h1ycIMMzFJHxnKann0xtSMX8VJQgxZQvL4depV7rNIAxER5z kmmvd9gmDJbqMBdkGHGgcTF2kpD0LKHbkKDbJ6ZrlA 7aUJVsKUfbIZAtcyl0EcVvVy6vyNFyoNyiQNbqLxwtLPbcNIDlcaIktsEsuCufQZXfVHYpIXkgGKFhWM zkULAkNNYuVkGfaElpjCQvArTsVuQbeTwzhXjlPUzlTmCoMZCnNUhkS6dvVaXyKyTfCys3XHPklIDdQD PsGqh4ZEMtiEUlKDBKlRukyN8yEIYnlBkveY8drSQ4 WLCfyuRjvRDLlS7mTLGUfB8rPvT5MDJeXyk9NHUiCkNirQDukN2= CPT Code(s) (test code = 3357) f9hfrADoLBNdbMLyHfTpHWDlSQFyn8ruSDHheAPnMuVbDsScLrOzXlprqZMvXZFfYfPxe8cxo397lQDc m9egCJOzQeD4dHFbFOXceAUgH522c1fkv2sqrrFfbPZ2CFVuWGJ6LNoqbrOujsX4VNkmfAUyZwJ0NZub nyGwKZkdsgRtxcQhRne7KSAsU496SPN7tSfyc7qyBA O5GCNwPRIzDaOvKl6bwWNwQ782YKNjDWGCEGJyhNp6JWWyksTqihXawCMBz284Q344o2ghMJQuwhFswW jVyxcur8vnL975UJOmlZRvrmKdKkXhPURelXQqpAR6ZRGjHG0tlpdyLaGrQU2eumfrHjHrTW1kxeq6Fk XwCO6bgctdMbKaQSjxEBUobdbbHBFoz4BmndlkYU2y L1Fjd2U3tY4seSBaKBAiwWIiMeMgJQKwcx7qsVNfPUaka7DkLJA4ekY5cLGepFNbUBBcOM63Seddm2Oh TfrvPXV2IXXaloDek8Udm5shNxWoqmSnT1ewN9JaBURpXCMbPPBsOeQvxpRpe6Xyn8EwcQJxuBu1i1jw LYBuZELvkGlxj3aoUIE5ZABhI1G7rNLeg3cgIOhcES GbyHJ8qiabRUoiPYPcpzK1bpbcKGipGBIuiEC0piuaXBteFBQnYrW7amouWFpyPTFwJRO3KVhgq320UX G9AEpbZxuhRMssYYVefiYkilNevBtqJGMwQRYnIWjeJUQuZBksEGXrOQCkSjXrkLdvjNwizM0kIxJvEn NgBHibBU9gRFSqE4zomPAxYHGqESKlK3ofIqBhjW4ftZfnPDypcpNkSOo2YnC2HGKmrz5= GROSS DESCRIPTION (test code = 3366) [file] BD9xFBRyb8M2cJEei83eBAVSTIRmAmSePFOcbs3= MICROSCOPIC DESCRIPTION (test code = 3371) o6cntKMsAIRgrGRzOwXwUHOxZEHue5edMZLhyZKgYiXzIfGeSwRaRgvxwJRkMIQeXjZou7ljd646lAAn u1sdIESkSvN0yBVaWDMemQXbL694e6wwh3qnrlLbuQS2MYWySLB8BYamtuKsvoD4LFwvcJDnLtZ0HWbz opTtHCmpxaDrdtTqPcu2YAPsI670QOE3qVnce5nbQK Z6CFRwHOYlZwEdIt1tbENkF428EMYaNIQJSVOvzGr7KNKzvtOyswClwESRh747B290x8udHIXsggRikN mNhcjoj4fgK086KIOlwLVuhiXaYgWrWVGtbBRmhQV0GTVaDV4sfyinUpKaWN7sytxwMzCbJZ3chyv3Wb RxQH0svkocDwUnCDukUCTsgkqzQIXxd7IykbgwHB5l J7Dln7S6nI8tePSyAKGtmNYjUwPwLOCheo2nlJDrYUmmw5VcPNG5ksD2pHXkiIGwNSRhOQ19Slckr9Ko EmhtGTE1DMDvuiYqo5Ttf8nqQqYpmuSwM3pyU2ZtYUXyOGAzZVOeQxIswoBfn9Gnx6QiwMCtcWu2j4jr WLIkUXAftSpjk1hrFJY8CCYaP5G4dNIfn0ayZFkyUD WdvQD9jdmqTSovXVGyvlE3eursYCmoKTIziIF3smhpZZznLBUdPtA1vyjbSJmoNCTfKMY7COoer945OH E3LCbpScsoCWjuZRFoeuNyzkGhiYjdMJSsRQYtCYueCPTzKQalGUIfIRKrDbXhsCpkeCkwtX9yOjLfHw IxDVchPN1oZYGaA9puqPJjWKMgSWJaI4qvUhPdgG9zqJrqVRiqwoHvFIRiqeVmbp3mRC8jsKWlaI== Gross assessment was performed at (test code = 2777) [facility], Department of Pathology, [address] [place] [address], Technical component was performed at (test code = 2778 ) [facility], Department of Pathology, [address] [place] [address], Professional component was performed at (test code = 2 779) [facility], Department of Pathology, [address] [place] [address], [facility] [id number] 11:09:00Surgical Pathology Report Case: [id number] Authorizing Provider: Lars Bojorquez MD Collected: 06/30/2019 1504 Ordering Location: [facility] PERIOPERATIVE Received: 06/30/2019 1648 SERVICES Pathologist: Renu Chahal MD Specimen: Gallbladder, gallbladder and contents A. GALLBLADDER, CHOLECYSTECTOMY: - CHRONIC CHOLECYSTITIS WITH CHOLELITHIASIS AND CHOLESTEROLOSIS. Signing Pathologist Direct Phone Line: [phone] signed by Renu Chahal MD on 07/02/2019 at 11:09 [id number] in formalin labeled "gallbladder" is a non-intact gallbladder measuring 6 x 2.5 x 1.5 cm. An attached cystic duct is present measuring 0.2 cm in length and 0.4 cm in diameter. The serosa of the gallbladder is yan-pink and unremarkable except for the area of disruption measuring 0.3 x 0.2 cm. On opening of the specimen red-yellow velvety mucosa is observed with yan-yellow excrescences (possible cholesterolosis). A calculus is observed obstructing the cystic duct measuring 0.4 x 0.3 x 0.2 cm. The gallbladder wall is serially se ctioned and no masses or lesions are identified. The wall thickness is up to 0. 3 cm. Rail Flaw Detector Operator sections are submitted in cassettes A1-A2.Ink code: Cysti c duct, hannah; hepatic bed, black; serosa, green.Section code: A1 cystic duct m argin and off premise service representative section of the gallbladder wall; A2 off premise service representative sec tion of the gallbladder wall adjacent to area of disruption. CYB/bc Performed.B [facility], Department of Pathology, [address] [place] [address], [facility], Department o f Pathology, [address] [place] [address], [facility], Department of Pathology, [address] [place] [address], DJTW , [id number] 13:22:00* Test Item Value Reference Range Interpretation Comments Test Urine, POC (test code = 1287914) Negative Control line present?, POC (test code = 8007065) Yes Background clear?, POC (test code = 7062532) Yes UPT Cassette Lot #, POC (test code = 0035888) [id number] UPT Cassette Expiration Date, POC (test code = 1862209) 11/06/20 Lab Interpretation (test code = 98132-5) Normal [facility] CT ABD PELVIS [id number] 19:47:00 Name: MICHOACANOUSMAN N [facility] : 1995 Age/S: 23 / F [address] [place] [address] Blvd Unit #: [id number] Loc: [place] [address] Phys: Karey Stoner [employer]OUR[employer]AD[employer] Acct: [id number] Di s Date: Status: REG ER PHONE #: Exam Date: 06/18/20191926 FAX #: Reason: abd pain EXAMS: CPT CODE: [id number] CT ABD PELVIS W/CONT 09221 Clinical Indication: abd pain Comparison: None TECHNIQUE: Helical imaging was perform ed after injection of IV contrast, from the lung base through the symphysi s with multiplanar reformations obtained. IV CONTRAST: 100 mL of Iso monica-300 GI CONTRAST: Oral contrast was administered. DLP: 777 mGy-cm FINDINGS: CT ABDOMEN AND PELVIS WITH CONTRAST: LUNG BASE: Atelectasis is seen at the lung bases. LIVER: The liver parenchyma is normal in appearance without masses or intrahepa tic biliary ductal dilatation. The portal vein is normal in caliber. BILIARY TREE: The common bile duct is normal in caliber without e vidence of filling defects. GALLBLADDER: Calcified stones are seen at the gallbladder neck. PANCREAS: The pancreas is unremarkable. The pancreatic duct is normal in caliber. SPLEEN: The spleen is normal in size and there are no parenchymal abnormalities. ADRENALS: The right adrenal gland is unremarkable. The left adrenal g land is unremarkable. KIDNEYS: Hypodensity with loss of cortical m edullary differentiation is seen in the right kidney, suggestive of acute pyelonephritis. There are no masses. There is no evidence of renal or uret eral calculi. There is no evidence of hydronephrosis. BOWEL: The visualized portion of the esophagus is unremarkable. The stomach is unremarkable. The small bowel is normal in caliber and there is no eviden ce of masses or obstruction. The colon is normal in caliber without any ma sses. APPENDIX: The appendix is unremarkable. PAGE 1 Signed Report (CONTINUED) Name: USMAN RÍOS [facility] : 1995 Age/S: 23 / F [address] [place] [address] Blvd Unit #: [id number] Loc: [place] [address] Phys: Kinjal Stoner [employer] Acct: [id number] Dis Date: Status: REG ER PHONE #: [phone] Exam Date: 06/18/20191926 FAX #: [phone] Reason: abd pain EXAMS: CPT CODE: [id number] CT ABD PELVIS W/CONT 30820 <Continued> PELVIS: There are no pelvic masses. The urinary bladder is unremarkable. The uterus and ovaries are unremarkable. PERITONEUM: There is no evidence for free intraperitoneal fluid or air. SOFT TISSUES: The soft tissues are unremarkable. There is no evidence of masses or hernias. LYMPH NODES: There is no evidence of mesenteric, retroperitoneal, or inguinal lymphadenopathy. VASCULATURE: The abdominal aorta is normal in caliber. The branches of the abdominal aorta are widely patent. MUSCULOSKELETAL: The visualized bony skeleton is unremarkable. IMPRESSION: 1. Acute right pyelonephritis. 2. Cholelithiasis without evidence of cholecystitis. 3. Normal appendix.. SL: GENNY at 1946 Reported and signed by: Sampson Orourke M.D. CC: Kinjal Stoner NP Technologist:Kaitlin Holden RT(R)(CT) CTDI: DLP: Trnscb Date/Time: 06/18/2019 (1946) [email or web address] Orig Print D/T: S: 06/18/2019 (1950) PAGE 2 Signed Report UA RFLX MICR CULT IF [id number] 19:15:00* Test Item Value Reference Range Interpretation Comments UA COLOR (test code = COLU) YELLOW YEL/STRAW UA APPEARANCE (test code = APPU) CLEAR CLEAR UA GLUCOSE DIPSTICK (test code = DGLUU) NEGATIVE NEGATIVE UA BILIRUBIN DIPSTICK (test code = BILU) NEGATIVE NEGATIVE UA KETONE DIPSTICK (test code = KETU) NEGATIVE NEGATIVE UA SPECIFIC GRAVITY (test code = SGU) 1.008 1.005-1.030 N UA BLOOD DIPSTICK (test code = SUSANA) NEGATIVE NEGATIVE UA PH DIPSTICK (test code = CHRIS) 7.0 5.0-7.0 N UA PROTEIN DIPSTICK (test code = PROU) NEGATIVE NEGATIVE UA UROBILINIOGEN DIPSTICK (test code = URO) 0.2 mg/dL 0.2-1.0 UA NITRITE DIPSTICK (test code = DEVORAH) NEGATIVE NEGATIVE UA LEUKOCYTE ESTERASE DIPSTICK (test code = LEUU) NEGATIVE NEGA TIVE UA WBC (test code = WBCU) 0-3 WBC/HPF 0-3 UA RBC (test code = RBCU) 0-3 RBC/HPF 0-3 UA WBC NO REFLEX (test code = WBCUCL) 0-3 WBC/HPF 0-3 UA BACTERIA (test code = BACU) NONE SEEN /HPF NONE SEEN UA SQUAMOUS CELLS (test code = SQU) 6-10 /HPF NONE SEEN A UA MUCUS (test code = MUCU) TRACE /LPF NONE SEEN Indication for culture: Suprapubic PainSpecimen Description: CLEAN CATCH BASIC METABOLIC [id number] 19:15:00* Test Item Value Reference Range Interpretation Comments SODIUM (test code = NA) 136 mEq/L 134-147 N POTASSIUM (test code = K) 3.8 mEq/L 3.4-5.0 N CHLORIDE (test code = CL) 107 mEq/L 100-108 N CARBON DIOXIDE (test code = CO2) 24 mEq/L 21-33 N ANION GAP (test code = GAP) 9 0-20 N GLUCOSE (test code = GLU) 99 mg/dL 70-110 N BLOOD UREA NITROGEN (test code = BUN) 9 mg/dL 7-18 N GLOMERULAR FILTRATION RATE (test code = GFR) 110-120 CREATININE (test code = CREAT) mg/dL 0.6-1.3 CALCIUM (test code = CA) 9.1 mg/dL 8.0-10.5 N HEPATIC FUNCTION [id number] 19:15:00* Test Item Value Reference Range Interpretation Comments TOTAL PROTEIN (test code = PROT) g/dL 6.4-8.2 ALBUMIN (test code = ALB) g/dL 3.4-5.0 BILIRUBIN TOTAL (test code = BILT) MG/DL <1.5 BILIRUBIN DIRECT (test code = BILD) MG/DL 0.0-0.30 SGOT/AST (test code = AST) IUnit/L 15-37 SGPT/ALT (test code = ALT) IUnit/L 15-65 ALKALINE PHOSPHATASE TOTAL (test code = ALKP) IUnit/L 20-125 [id number] 19:15:00* Test Item Value Reference Range Interpretation Comments LIPASE (test code = LIP) 79 IUnit/L 73-393 N HCG SERUM [id number] 19:15:00* Test Item Value Reference Range Interpretation Comments HCG SERUM QUAL (test code = HCGQL) SERUM NEGATIVE NEGATIVE BASIC METABOLIC [id number] 19:15:00* Test Item Value Reference Range Interpretation Comments SODIUM (test code = NA) 136 mEq/L 134-147 N POTASSIUM (test code = K) 3.8 mEq/L 3.4-5.0 N CHLORIDE (test code = CL) 107 mEq/L 100-108 N CARBON DIOXIDE (test code = CO2) 24 mEq/L 21-33 N ANION GAP (test code = GAP) 9 0-20 N GLUCOSE (test code = GLU) 99 mg/dL 70-110 N BLOOD UREA NITROGEN (test code = BUN) 9 mg/dL 7-18 N GLOMERULAR FILTRATION RATE (test code = GFR) 104.6 110-120 L Units of measure = ml/min/1.73 m2 CREATININE (test code = CREAT) 0.7 mg/dL 0.6-1.3 N CALCIUM (test code = CA) 9.1 mg/dL 8.0-10.5 N HEPATIC FUNCTION [id number] 19:15:00* Test Item Value Reference Range Interpretation Comments TOTAL PROTEIN (test code = PROT) 7.7 g/dL 6.4-8.2 N ALBUMIN (test code = ALB) 3.40 g/dL 3.4-5.0 N BILIRUBIN TOTAL (test code = BILT) 0.2 MG/DL <1.5 N BILIRUBIN DIRECT (test code = BILD) < 0.10 MG/DL 0.0-0.30 N BILIRUBIN INDIRECT (test code = BILIND) 0.10 MG/DL SGOT/AST (test code = AST) 21 IUnit/L 15-37 N SGPT/ALT (test code = ALT) 37 IUnit/L 15-65 N ALKALINE PHOSPHATASE TOTAL (test code = ALKP) 70 IUnit/L 20-125 N [id number] 19:15:00* Test Item Value Reference Range Interpretation Comments LIPASE (test code = LIP) 79 IUnit/L 73-393 N HCG SERUM [id number] 19:15:00* Test Item Value Reference Range Interpretation Comments HCG SERUM QUAL (test code = HCGQL) SERUM NEGATIVE NEGATIVE BASIC METABOLIC [id number] 19:08:00* Test Item Value Reference Range Interpretation Comments SODIUM (test code = NA) mEq/L 134-147 POTASSIUM (test code = K) mEq/L 3.4-5.0 CHLORIDE (test code = CL) mEq/L 100-108 CARBON DIOXIDE (test code = CO2) mEq/L 21-33 ANION GAP (test code = GAP) 0-20 GLUCOSE (test code = GLU) mg/dL 70-110 BLOOD UREA NITROGEN (test code = BUN) mg/dL 7-18 GLOMERULAR FILTRATION RATE (test code = GFR) 110-120 CREATININE (test code = CREAT) mg/dL 0.6-1.3 CALCIUM (test code = CA) mg/dL 8.0-10.5 HEPATIC FUNCTION [id number] 19:08:00* Test Item Value Reference Range Interpretation Comments TOTAL PROTEIN (test code = PROT) g/dL 6.4-8.2 ALBUMIN (test code = ALB) g/dL 3.4-5.0 BILIRUBIN TOTAL (test code = BILT) MG/DL <1.5 BILIRUBIN DIRECT (test code = BILD) MG/DL 0.0-0.30 SGOT/AST (test code = AST) IUnit/L 15-37 SGPT/ALT (test code = ALT) IUnit/L 15-65 ALKALINE PHOSPHATASE TOTAL (test code = ALKP) IUnit/L 20-125 [id number] 19:08:00* Test Item Value Reference Range Interpretation Comments LIPASE (test code = LIP) IUnit/L 73-393 HCG SERUM [id number] 19:08:00* Test Item Value Reference Range Interpretation Comments HCG SERUM QUAL (test code = HCGQL) SERUM NEGATIVE NEGATIVE CBC W/AUTO [id number] 18:59:00* Test Item Value Reference Range Interpretation Comments WHITE BLOOD CELL (test code = WBC) 11.54 x10 3/uL 4.5-11.0 H RED BLOOD CELL (test code = RBC) 3.82 x10 6/uL 3.54-5.02 N HEMOGLOBIN (test code = HGB) 10.8 g/dL 11.0-15.0 L HEMATOCRIT (test code = HCT) 33.4 % 33.0-45.0 N MEAN CELL VOLUME (test code = MCV) 87.4 fL 81.0-99.0 N MEAN CELL HGB (test code = MCH) 28.3 pg 27.0-33.0 N MEAN CELL HGB CONCETRATION (test code = MCHC) 32.3 g/dL 33.0-37. 0 L RED CELL DISTRIBUTION WIDTH CV (test code = RDW) 13.2 % 11.5- 14.5 N RED CELL DISTRIBUTION WIDTH SD (test code = RDW-SD) 42.1 fL 37 .0-54.0 N PLATELET COUNT (test code = PLT) 481 x10 3/uL 150-400 H MEAN PLATELET VOLUME (test code = MPV) 10.2 fL 7.0-9.0 H NEUTROPHIL % (test code = NT%) 55.2 % 56.0-77.0 L IMMATURE GRANULOCYTE % (test code = IG%) 0.8 % 0.0-2.0 N LYMPHOCYTE % (test code = LY%) 31.2 % 14.0-32.0 N MONOCYTE % (test code = MO%) 6.1 % 4.8-9.0 N EOSINOPHIL % (test code = EO%) 6.0 % 0.3-3.7 H BASOPHIL % (test code = BA%) 0.7 % 0.0-2.0 N NUCLEATED RBC % (test code = NRBC%) 0.0 % 0-0 N NEUTROPHIL # (test code = NT#) 6.38 x10 3/uL 2.0-7.6 N IMMATURE GRANULOCYTE # (test code = IG#) 0.09 x10 3/uL 0.00-0.03 H LYMPHOCYTE # (test code = LY#) 3.60 x10 3/uL 1.0-3.8 N MONOCYTE # (test code = MO#) 0.70 x10 3/uL 0.1-0.8 N EOSINOPHIL # (test code = EO#) 0.69 x10 3/uL 0.0-0.2 H BASOPHIL # (test code = BA#) 0.08 x10 3/uL 0.0-0.2 N NUCLEATED RBC # (test code = NRBC#) 0.00 x10 3/uL 0.0-0.1 N MANUAL DIFF REQUIRED (test code = MDIFF) NO LACTIC ACID [id number] 18:45:00* Test Item Value Reference Range Interpretation Comments LACTIC ACID POC (test code = LACTP) 1.1 MMOL/L 0.90-1.70 N Performed by certified stave log cut off saw operator at [facility] Sodium [id number] 05:46:00* Test Item Value Reference Range Interpretation Comments Sodium Level (test code = 2951-2) 138 136-145 [facility]Potassium Kwrpg3121-19-35 05:46:00* Test Item Value Reference Range Interpretation Comments Potassium Level (test code = 2823-3) 3.7 3.5-5.1 [facility] CenterChloride Sviif5681-52-75 05:46:00* Test Item Value Reference Range Interpretation Comments Chloride Level (test code = 2075-0) 107 98-107 [facility] CenterCarbon Dioxide Xqord3468-38-24 05:46:00* Test Item Value Reference Range Interpretation Comments Carbon Dioxide Level (test code = 2028-9) 22 22-29 [facility] CenterAnion Vgy9799-01-46 05:46:00* Test Item Value Reference Range Interpretation Comments Anion Gap (test code = 78378-2) 12.7 8-16 [facility] CenterBlood Urea Hntwyvap1178-17-28 05:46:00* Test Item Value Reference Range Interpretation Comments Blood Urea Nitrogen (test code = 3094-0) 5 7-26 L [facility] CenterCreatinine2020-01-07 05:46:00* Test Item Value Reference Range Interpretation Comments Creatinine (test code = 2160-0) 0.69 0.57-1.11 [facility] CenterBUN/Creatinine Yqgbu4260-01-20 05:46:00* Test Item Value Reference Range Interpretation Comments BUN/Creatinine Ratio (test code = 3097-3) 7 6-25 [facility] CenterEstimat Glomerular Filtration Rate 2019-06-15 05:46:00* Test Item Value Reference Range Interpretation Comments Estimat Glomerular Filtration Rate (test code = 911912904) > 60 >60 Ranges were taken from the National Kidney Disease Education Program and the [facility] literature.Reference ranges:60 or greater: Pwdkkz23-88 ( for 3 consecutive months): Chronic kidney disease 15 or less: Kidney failureMethodist Charlton Medical CenterGlucose Chivj5690-27-72 05:46:00* Test Item Value Reference Range Interpretation Comments Glucose Level (test code = FTY3451) 100 74-118 [facility] CenterCalcium Zyrvr6079-92-07 05:46:00* Test Item Value Reference Range Interpretation Comments Calcium Level (test code = 53925-9) 8.5 8.4-10.2 [facility] CenterWhite Blood Dojse2833-32-10 05:35:00* Test Item Value Reference Range Interpretation Comments White Blood Count (test code = 6690-2) 12.17 4.8-10.8 H [facility] CenterRed Blood Gxccq9840-86-79 05:35:00* Test Item Value Reference Range Interpretation Comments Red Blood Count (test code = 789-8) 3.18 3.6-5.1 L [facility] CenterHemoglobin2020-01-07 05:35:00* Test Item Value Reference Range Interpretation Comments Hemoglobin (test code = 51490-6) 8.9 12.0-16.0 L [facility] CenterHematocrit2020-01-07 05:35:00* Test Item Value Reference Range Interpretation Comments Hematocrit (test code = 4544-3) 27.9 34.2-44.1 L [facility] CenterMean Corpuscular Ijjooc7805-47-65 05:35:00* Test Item Value Reference Range Interpretation Comments Mean Corpuscular Volume (test code = 787-2) 87.7 81-99 VERIFIED PREVIOUS RESULTSMethodist Charlton Medical CenterMean Corpuscular Wdrnvcxezy9822-67-90 05:35:00* Test Item Value Reference Range Interpretation Comments Mean Corpuscular Hemoglobin (test code = 785-6) 28.0 28-32 [facility] CenterMean Corpuscular Hemoglobin Concent 2019-06-15 05:35:00* Test Item Value Reference Range Interpretation Comments Mean Corpuscular Hemoglobin Concent (test code = 786-4) 31.9 31-35 [facility] CenterRed Cell Distribution Ppvlo3562-51-49 05:35:00* Test Item Value Reference Range Interpretation Comments Red Cell Distribution Width (test code = 06543-8) 13.8 11.7 -14.4 [facility] CenterPlatelet Nieap3406-68-71 05:35:00* Test Item Value Reference Range Interpretation Comments Platelet Count (test code = 777-3) 235 140-360 [facility] CenterNeutrophils (%) (Auto)2019-06-15 05:35:00 * Test Item Value Reference Range Interpretation Comments Neutrophils (%) (Auto) (test code = 18711-0) 65.9 38.7-80.0 [facility] CenterLymphocytes (%) (Auto)2019-06-15 05:35:00 * Test Item Value Reference Range Interpretation Comments Lymphocytes (%) (Auto) (test code = 736-9) 20.7 18.0-39.1 [facility] CenterMonocytes (%) (Auto)2019-06-15 05:35:00* Test Item Value Reference Range Interpretation Comments Monocytes (%) (Auto) (test code = 5905-5) 11.3 4.4-11.3 [facility] CenterEosinophils (%) (Auto)2019-06-15 05:35:00 * Test Item Value Reference Range Interpretation Comments Eosinophils (%) (Auto) (test code = 713-8) 1.4 0.0-6.0 [facility] CenterBasophils (%) (Auto)2019-06-15 05:35:00* Test Item Value Reference Range Interpretation Comments Basophils (%) (Auto) (test code = 706-2) 0.3 0.0-1.0 [facility] CenterIM GRANULOCYTES %2019-06-15 05:35:00* Test Item Value Reference Range Interpretation Comments IM GRANULOCYTES % (test code = IM GRANULOCYTES %) 0.4 0.0- 1.0 [facility] CenterNeutrophils # (Auto)2019-06-15 05:35:00* Test Item Value Reference Range Interpretation Comments Neutrophils # (Auto) (test code = 751-8) 8.0 2.1-6.9 H [facility] CenterLymphocytes # (Auto)2019-06-15 05:35:00* Test Item Value Reference Range Interpretation Comments Lymphocytes # (Auto) (test code = 97246-3) 2.5 1.0-3.2 [facility] CenterMonocytes # (Auto)2019-06-15 05:35:00* Test Item Value Reference Range Interpretation Comments Monocytes # (Auto) (test code = 742-7) 1.4 0.2-0.8 H [facility] CenterEosinophils # (Auto)2019-06-15 05:35:00* Test Item Value Reference Range Interpretation Comments Eosinophils # (Auto) (test code = 711-2) 0.2 0.0-0.4 [facility] CenterBasophils # (Auto)2019-06-15 05:35:00* Test Item Value Reference Range Interpretation Comments Basophils # (Auto) (test code = 704-7) 0.0 0.0-0.1 [facility] CenterAbsolute Immature Granulocyte (auto 2019-06-15 05:35:00* Test Item Value Reference Range Interpretation Comments Absolute Immature Granulocyte (auto (bridger t code = Absolute Immature Granulocyte (auto) 0.05 0-0.1 [facility] CenterBlood Kqtnalz9336-18-84 19:37:00* Test Item Value Reference Range Interpretation Comments Blood Culture (test code = 26369118) NO GROWTH AFTER 48 HOURS [facility] CenterMagnesium Cbqok6524-56-69 12:36:00* Test Item Value Reference Range Interpretation Comments Magnesium Level (test code = 01791-8) 1.8 1.3-2.1 [facility] CenterUrine Zcsxdsq6160-73-59 09:37:00* Test Item Value Reference Range Interpretation Comments Urine Culture (test code = 630-4) No Result Data Provided [facility] CenterLactic Acid Bqqjj4211-45-87 23:29:00* Test Item Value Reference Range Interpretation Comments Lactic Acid Level (test code = Lactic Acid Level) 1.3 0.5- 2.0 [facility] CenterUS ANGUBERNMFU4509-61-63 22:43:00 [place] [address] Patient Name: USMAN RÍOS MR #: [id number] : 1995 Age/Sex: 23/F Req #: [id number] Adm Physician: Ordered by: DM BREEN NP Report #: [id number] Location: ER Room/Bed: Procedure: 0104-0 002 US/US GALLBLADDER Exam Date: 06/12/19 Exam Time: 2113 REPORT STATUS: Signed EXAM: Right Upper Quadrant Ultrasound with Doppler INDICATION: Right upper quadr ant pain COMPARISON: Abdominal CT 06/12/2019 TECHNIQUE: Transverse and l ongitudinal images of the right upper abdomen were obtained. Grayscale, color Doppler and spectral waveform analysis of the hepatic vasculature and splenic vein were performed. FINDINGS: Liver: Size: 15.6 cm in the r ight midclavicular line, normal Appearance: Normal echogenicity, smooth c ontour Mass: No focal masses Gallbladder: Stones/Sludge: None Wall: 0.36 cm, slightly thickened due to gallbladder contracted. Appearance: No pericholecystic fluid or hydrops. Sonographic Song's S ign: Negative Bile Ducts: Intrahepatic Ducts: No dilatation E xtrahepatic Ducts: Common bile duct measures 0.4 cm, no dilatation Pancreas : Visualized portions of the pancreatic head, neck and proximal body are normal. Right Kidney: Size: 12.7 cm Echogenicity: Normal Parenchymal thickness: Normal Collecting system: No hydronephrosis Stones: None Cyst/Mass: None Vessels: Main Portal V ein: Diameter: 0.9 cm, normal. Normal flow direction. Aorta: Visualized p ortions are normal Inferior Vena Cava: Visualized portions are normal Free Fluid: No ascites or pleural effusion IMPRESSION: The gallstone at the gallbladder neck seen on same-day abdominal CT is not seen on this sonographically. The gallbladder is partially contracted, acute obstruc tive cholecystitis is very unlikely. No acute sonographic abnormalities in the right upper quadrant. Signed by: Oscar Reynolds DO on 06/12/2019 10:4 7 PM Dictated By: OSCAR REYNOLDS DO 46 Transcribed By: NIR on 06/12/192246 COPY TO: DM BREEN NP CT ABDOMEN/PELVIS [id number] 21:00:00 [place] [address] Patient Name: USMAN RÍOS MR #: [id number] : 1995 Age/Sex: 23/F Req #: [id number] Adm Physician: Ordered by: DM BREEN NP Report #: [id number] Location: ER Room/Bed: Procedure: 0104-[address]/CT ABDOMEN/PELVIS WO Exam Date: 06/12/19 Exam Time: 2004 REPORT STATUS: Signed EXAM: CT Abdomen and Pelvis WITHOUT contrast INDICATION: Abdominal pain, b ack pain COMPARISON: Abdominal CT 06/28/2018 TECHNIQUE: Abdomen and pelvis were scanned utilizing a multidetector helical scanner from the lung base to t he pubic symphysis without administration of IV contrast. Absence of intraveno us contrast decreases sensitivity for detection of focal lesions and vascular pathology. Coronal and sagittal reformations were obtained. Routine protocol w as performed. IV CONTRAST: None ORAL CONTRAST: None COMPLICATIONS: None RADIATION DOSE: Total DLP: 776 mGy*cm Estimated effective dose: (DLP x 0.015 x size factor) mSv CTDIvol has be en reviewed. It is below the limits set by the Radiation Protocol Committee (R PC). Dose modulation, iterative reconstruction, and/or weight based adjus tment of the mA/kV was utilized to reduce the radiation dose to as low as reas onably achievable. FINDINGS: LINES and TUBES: None. LOWER THOR AX: Bibasilar underaeration. HEPATOBILIARY: No focal hepatic lesions . No biliary ductal dilation. GALLBLADDER: Small calcified gallstone. No wall thickening or pericholecystic fluid. No overdistention. SPLEEN: No s plenomegaly. PANCREAS: No focal masses or ductal dilatation. ADRENA LS: No adrenal nodules KIDNEYS/URETERS: No hydronephrosis. No cystic o r solid mass lesions. No stones. Mild right perinephric fat stranding an d new mild prominence of right renal pelvis. GI TRACT: No abnormal disten tion, wall thickening, or evidence of bowel obstruction. Appendix is nor mal. PELVIC ORGANS/BLADDER: Trace perivesicular fat stranding, otherwise ur inary bladder unremarkable. Normal appearance of the uterus and ovaries. LYMPH NODES: No lymphadenopathy. VESSELS: Unremarkable. PERITONEUM / R ETROPERITONEUM: No free air or fluid. BONES: Unremarkable. SOFT TISSUE S: Unremarkable. IMPRESSION: 1. Findings suggestive of r ight polynephritis. No obstructing stone or lesion identified. 2. Cholelith iasis without evidence of acute obstructive cholecystitis. Signed by: Heber Reynolds DO on 06/12/2019 9:05 PM Dictated By: OSCAR REYNOLDS DO Elect ronically Signed By: OSCAR REYNOLDS DO on 06/12/192104 Transcribed By: ANIA BURROWS on 06/12/192104 COPY TO: DM BREEN [employer] Amylase Level 2019-06-12 20:03:00* Test Item Value Reference Range Interpretation Comments Amylase Level (test code = 1798-8) 30 25-125 [facility] CenterLipase2020-01-04 20:03:00* Test Item Value Reference Range Interpretation Comments Lipase (test code = 3040-3) 12 8-78 [facility] CenterUrine Dbwy6657-96-97 19:37:00* Test Item Value Reference Range Interpretation Comments Urine Test (test code = 2106-3) NEGATIVE NEGATIVE [facility] CenterUrine Opiates Csarfz9916-46-44 19:09:00* Test Item Value Reference Range Interpretation Comments Urine Opiates Screen (test code = 74040-0) NEGATIVE NEGATIVE ALL TESTS PERFORMED MANUALLY ON BIORAD TOX/SEE TESTMethodist Charlton Medical CenterUrine Barbiturates Dglrdc4932-89-08 19:09:00* Test Item Value Reference Range Interpretation Comments Urine Barbiturates Screen (test code = 125989037) NEGATIVE NEGA TIVE [facility] CenterUrine Phencyclidine Dzirte1155-10-70 19:09:00* Test Item Value Reference Range Interpretation Comments Urine Phencyclidine Screen (test code = 13890-9) NEGATIVE NEGAT OLIVIA [facility] CenterUrine Amphetamines Yhhooj9154-42-74 19:09:00* Test Item Value Reference Range Interpretation Comments Urine Amphetamines Screen (test code = 04779-2) NEGATIVE NEGATI VE [facility] Methamphetamines Jdkgfe7656-96-66 19:09:00* Test Item Value Reference Range Interpretation Comments Urine Methamphetamines Screen (test code = Urine Metha mphetamines Screen) NEGATIVE NEGATIVE [facility] CenterUrine Benzodiazepines Njdzpa9567-12-12 19:09:00* Test Item Value Reference Range Interpretation Comments Urine Benzodiazepines Screen (test code = 90958-4) NEGATIVE NEG ATIVE [facility] CenterUrine Cocaine Ulyiwz4119-22-04 19:09:00* Test Item Value Reference Range Interpretation Comments Urine Cocaine Screen (test code = 3398-5) NEGATIVE NEGATIVE [facility] CenterUrine Cannabinoids Vnnvbh0754-98-07 19:09:00* Test Item Value Reference Range Interpretation Comments Urine Cannabinoids Screen (test code = 08303-1) NEGATIVE NEGATI VE THESE RESULTS ARE FOR MEDICAL TREATMENT ONLYTHIS REPORT CONTAINS UNCONFIR MED SCREENING RESULTS*POSITIVE RESULTS WILL BE CONFIRMED BY REFERENCE LAB UPON R EQUEST CUT-OFFDRUG CLASS CONCENTRATION ng/mLAmphetamines 1000Methamphetamines 1000Cocaine 300Opiate 300Phencyc lidine 25Cannabinoid 50Barbiturates 300Benzodiazepine [address] CenterU[facility] Methadone Ivqjjy3229-09-42 19:09:00* Test Item Value Reference Range Interpretation Comments Urine Methadone Screen (test code = 05412-6) NEGATIVE NEGATIVE THESE RESULTS ARE FOR MEDICAL TREATMENT ONLYTHIS REPORT CONTAINS UNCONFIR MED SCREENING RESULTS*POSITIVE RESULTS WILL BE CONFIRMED BY REFERENCE LAB UPON R EQUEST CUT-OFFDRUG CLASS CONCENTRATION ng/mLAmphetamines 1000Methamphetamines 1000Cocaine Metabolite 300Opiate 300Phencyc lidine 25Cannabinoid 50Barbiturates 300Benzodiazepine [address] CenterUrine Dsiwj7351-07-25 19:08:00* Test Item Value Reference Range Interpretation Comments Urine Color (test code = 5778-6) YELLOW YELLOW [facility] CenterUrine Ewskpdh5029-39-60 19:08:00* Test Item Value Reference Range Interpretation Comments Urine Clarity (test code = 30403-3) CLEAR CLEAR [facility] CenterUrine Specific Lyjdivj1473-16-34 19:08:00 * Test Item Value Reference Range Interpretation Comments Urine Specific [place] (test code = 5811-5) 1.005 1.010-1.02 5 L [facility] CenterUrine [id number] 19:08:00* Test Item Value Reference Range Interpretation Comments Urine pH (test code = 76463-4) 6.5 5-7 [facility] CenterUrine Leukocyte Yxegxcrq1786-06-52 19:08:00* Test Item Value Reference Range Interpretation Comments Urine Leukocyte Esterase (test code = 5799-2) TRACE NEGATIVE H [facility] CenterUrine Zkywywp8118-35-76 19:08:00* Test Item Value Reference Range Interpretation Comments Urine Nitrite (test code = 25178-0) NEGATIVE NEGATIVE [facility] CenterUrine Bkegfup7849-69-63 19:08:00* Test Item Value Reference Range Interpretation Comments Urine Protein (test code = 5804-0) TRACE NEGATIVE H [facility] CenterUrine Glucose (UA)2019-06-12 19:08:00* Test Item Value Reference Range Interpretation Comments Urine Glucose (UA) (test code = 2349-9) NEGATIVE NEGATIVE [facility] CenterUrine Xkmxnvs2558-11-82 19:08:00* Test Item Value Reference Range Interpretation Comments Urine Ketones (test code = 98585-2) NEGATIVE NEGATIVE [facility] CenterUrine Wmxgjqwjbevq4249-25-79 19:08:00* Test Item Value Reference Range Interpretation Comments Urine Urobilinogen (test code = 28178-5) 1 0.2-1 [facility] CenterUrine Iigsdclwt2913-47-13 19:08:00* Test Item Value Reference Range Interpretation Comments Urine Bilirubin (test code = 1978-6) SMALL NEGATIVE [facility] CenterUrine Xfbrz9350-10-47 19:08:00* Test Item Value Reference Range Interpretation Comments Urine Blood (test code = 85599-4) TRACE NEGATIVE H [facility] CenterUrine YJR1736-60-78 19:08:00* Test Item Value Reference Range Interpretation Comments Urine WBC (test code = 5821-4) 6-10 0-5 H [facility] CenterUrine MKU0534-73-88 19:08:00* Test Item Value Reference Range Interpretation Comments Urine RBC (test code = 98981-7) 6-10 0-5 H [facility] CenterUrine Xjqbiabq3134-61-82 19:08:00* Test Item Value Reference Range Interpretation Comments Urine Bacteria (test code = 39364-0) RARE NONE [facility] CenterUrine Epithelial Tstdv4800-66-86 19:08:00 * Test Item Value Reference Range Interpretation Comments Urine Epithelial Cells (test code = 22375-6) FEW NONE [facility] CenterCreatine Firyci8778-58-40 18:49:00* Test Item Value Reference Range Interpretation Comments Creatine Kinase (test code = 2157-6) 46 29-168 [facility] CenterCreatine Kinase YT5340-59-32 18:49:00* Test Item Value Reference Range Interpretation Comments Creatine Kinase MB (test code = 49071-6) 0.50 0-5.0 [facility] CenterTroponin [id number] 18:49:00* Test Item Value Reference Range Interpretation Comments Troponin I (test code = PUC7163) 0.004 0-0.300 [facility] CenterCT BRAIN VM7662-41-05 18:36:00 [facility] [address] [place] [address] Patient Name: USMAN RÍOS MR #: [id number] : 1995 Age/Sex: 23/F Req #: [id number] Adm Physician: Ordered by: MELLO MILLAN DO Report #: [id number] Location: ER Room/Bed: Procedure: 0104-[address]/CT BRAIN WO Exam Date: 06/12/19 Exam Time: REPORT STATUS: Signed EXAMINA TION: Head CT HISTORY: Possible seizures, shaking. COMPARISON: None. T ECHNIQUE: Multidetector axial images were obtained without contrast from the f oramen magnum to the vertex . The images were reconstructed using brain and paula ne algorithms. Thin section brain images were reformatted into coronal and sa gittal planes. Image quality: Motion/streaking artifact limits the evaluation of the skull base and posterior cranial fossa. Dose modulation, iterative re construction, and/or weight based adjustment of the mA/kV was utilized to redu ce the radiation dose to as low as reasonably achievable. FINDINGS: Parenchyma: 1. No abnormal densities. 2. No mass or hemorrhage. No CT evidence of acute territorial vascular insult. Extra-axial spaces:No abnormal density. No extra-axial fluid collections Brain volu me: Normal for age. Ventricles: No hydrocephalus or displacement. Arteries: No density suggestive of thrombus. Dural sinuses: No abnorm al density. Extra-axial spaces: No abnormal density. Foramen mag num: No mass, Chiari malformation, or basilar invagination. Sella: No ob vious mass. Paranasal/mastoid sinuses: Mild mucosal inflammatory thicke kika of the partially visualized ethmoid all and sphenoid sinuses. Sku ll/Scalp: No lytic or blastic lesions. No fractures. IMPRESSION: No intracranial abnormalities. Signed by: Dr. Nilda Jung M.D. on 06/12/2019 6: 38 PM Dictated By: NILDA JUNG MD 37 Transcribed By: NIR on 06/12/191837 COPY TO: MELLO MATIAS DO Total Whcjncuqe0182-60-11 18:33:00* Test Item Value Reference Range Interpretation Comments Total Bilirubin (test code = 1975-2) 0.2 0.2-1.2 [facility] CenterAspartate Amino Transf (AST/SGOT) 2019-06-12 18:33:00* Test Item Value Reference Range Interpretation Comments Aspartate Amino Transf (AST/SGOT) (test code = Aspartate Amino Transf (AST/SGOT)) 20 5-34 [facility] CenterAlanine Aminotransferase (ALT/SGPT) 2019-06-12 18:33:00* Test Item Value Reference Range Interpretation Comments Alanine Aminotransferase (ALT/SGPT) (test code = 1742-6) 26 0-55 [facility] CenterTotal Suwqooj5215-12-62 18:33:00* Test Item Value Reference Range Interpretation Comments Total Protein (test code = 2885-2) 7.7 6.5-8.1 [facility] CenterAlbumin2020-01-04 18:33:00* Test Item Value Reference Range Interpretation Comments Albumin (test code = 1751-7) 3.6 3.5-5.0 [facility]obulin2020[facility] 18:33:00* Test Item Value Reference Range Interpretation Comments Globulin (test code = 03077-8) 4.1 2.3-3.5 H [facility]Album[facility]/Globulin Kzawa7321-82-21 18:33:00 * Test Item Value Reference Range Interpretation Comments Albumin/Globulin Ratio (test code = 1759-0) 0.9 0.8-2.0 [facility] CenterAlkaline Cuqzzsnilsn8342-36-78 18:33:00* Test Item Value Reference Range Interpretation Comments Alkaline Phosphatase (test code = 6768-6) 74 40-150 [facility] [id number] 14:39:00* Test Item Value Reference Range Interpretation Comments Urine WBC (test code = 5821-4) 0-5 0-5 [facility] [id number] 14:39:00* Test Item Value Reference Range Interpretation Comments Urine RBC (test code = 56635-3) NONE 0-5 [facility] Afjievid0893-11-34 14:39:00* Test Item Value Reference Range Interpretation Comments Urine Bacteria (test code = 90658-2) MANY NONE H [facility] Epithelial Uwuts7947-89-66 14:39:00 * Test Item Value Reference Range Interpretation Comments Urine Epithelial Cells (test code = 08460-0) MODERATE NONE [facility] Yoyo8888-78-18 14:30:00* Test Item Value Reference Range Interpretation Comments Urine Test (test code = 2106-3) NEGATIVE NEGATIVE [facility] Wyawr5597-95-55 14:26:00* Test Item Value Reference Range Interpretation Comments Urine Color (test code = 5778-6) YELLOW YELLOW [facility] Awewmdn0453-16-03 14:26:00* Test Item Value Reference Range Interpretation Comments Urine Clarity (test code = 52489-4) SL CLOUDY CLEAR [facility] Specific Ugxefug9343-06-93 14:26:00 * Test Item Value Reference Range Interpretation Comments Urine Specific [place] (test code = 5811-5) 1.025 1.010-1.02 5 [facility] [id number] 14:26:00* Test Item Value Reference Range Interpretation Comments Urine pH (test code = 68607-4) 6 5-7 [facility] Leukocyte Afrugyco6840-70-93 14:26:00* Test Item Value Reference Range Interpretation Comments Urine Leukocyte Esterase (test code = 5799-2) TRACE NEGATIVE H [facility] Rdxmyya2129-41-08 14:26:00* Test Item Value Reference Range Interpretation Comments Urine Nitrite (test code = 76276-3) NEGATIVE NEGATIVE [facility] Udknvbr4185-18-05 14:26:00* Test Item Value Reference Range Interpretation Comments Urine Protein (test code = 5804-0) TRACE NEGATIVE H [facility] Glucose (UA)2018-09-16 14:26:00* Test Item Value Reference Range Interpretation Comments Urine Glucose (UA) (test code = 2349-9) NEGATIVE NEGATIVE [facility] Mvkhwdu9928-62-04 14:26:00* Test Item Value Reference Range Interpretation Comments Urine Ketones (test code = 67192-1) NEGATIVE NEGATIVE [facility] Yxyvpleboztp5043-72-52 14:26:00* Test Item Value Reference Range Interpretation Comments Urine Urobilinogen (test code = 52549-7) 0.2 0.2-1 [facility] Ltmmgifkr5307-60-39 14:26:00* Test Item Value Reference Range Interpretation Comments Urine Bilirubin (test code = 1978-6) NEGATIVE NEGATIVE [facility] Nehna0680-53-71 14:26:00* Test Item Value Reference Range Interpretation Comments Urine Blood (test code = 54545-1) NEGATIVE NEGATIVE [facility] CenterInfluenza Virus Types A,B Antigen 2018-08-02 16:46:00* Test Item Value Reference Range Interpretation Comments Influenza Virus Types A,B Antigen (test code = 46651-0) NEGATIVE NEGATIVE [facility] CenterInflu[facility] Virus Types A,B Antigen 2018-08-02 16:46:00* Test Item Value Reference Range Interpretation Comments Influenza Virus Types A,B Antigen (test code = 73786-6) NEGATIVE NEGATIVE [facility] CenterGroup A Streptococcus Hautcq0545-68-29 16:38:00* Test Item Value Reference Range Interpretation Comments Group A Streptococcus Screen (test code = 46309-7) NEGATIVE NEG ATIVE [facility] CenterGroup A Streptococcus Ipqkhp0949-34-75 16:38:00* Test Item Value Reference Range Interpretation Comments Group A Streptococcus Screen (test code = 84836-7) NEGATIVE NEG ATIVE [facility] [id number] 23:11:00 [facility] [address] [address] Patient Name: USMAN RÍOS MR #: [id number] : 1995 Age/Sex: 22/F Req #: [id number] Adm Physician: Ordered by: JORGE WRIGHT MD Report #: [id number] Location: ER Room/Bed: Procedure: [id number] CT/CT ABDOMEN/PELVIS WO Exam Date: 06/28/18 Exam Ti me: 2312 REPORT STATUS: Signed E XAM: CT ABDOMEN AND PELVIS without IV CONTRAST INDICATION: Vomiting, abdomina l pain right flank pain COMPARISON: None TECHNIQUE: The abdomen and pelvis were scanned using a multidetector helical scanner. Coronal and sagittal refo rmations were obtained. Dose modulation, iterative reconstruction, and/or weig ht based adjustment of the mA/kV was utilized to reduce the radiation dose to as low as reasonably achievable. Routine protocol performed. IV Contrast: No ne Oral Contrast: None CTDIvol has been reviewed. It is below the limits set by the Radiation Protocol Committee (RPC). FINDINGS: LOWER THORAX: No consolidations LIVER: No masses BILIARY: Cholelithiasis without cholecyst itis. SPLEEN: No masses PANCREAS: No masses ADRENALS: No nodules RIGHT KIDNEY: No nephroureterolithiasis or hydronephrosis. LEFT KIDNEY: No nephroureterolithiasis or hydronephrosis. GI TRACT: No wall thickening or obstruction. Normal appendix. VESSELS: None PERITONEUM/RETROPERIT ONEUM: No free air or fluid LYMPH NODES: No lymphadenopathy REPRODUCTIVE ORGANS: Normal BLADDER: Normal SOFT TISSUES: Normal BONES: No suspiciou s bone lesions. IMPRESSION: No nephroureterolithiasis or hydronephrosis. Cholelithiasis without cholecystitis. Signed by: Dr. Edgardo Arnold M.D. on 06/28/2018 11:36 PM Dictated By: EDGARDO ARNOLD MD 35 Transcribed By: NIR on 06/28 COPY TO: JORGE WRIGHT MD Urine [id number] 22:46:00* Test Item Value Reference Range Interpretation Comments Urine Color (test code = 5778-6) YELLOW YELLOW [facility] Nswozag1630-48-83 22:46:00* Test Item Value Reference Range Interpretation Comments Urine Clarity (test code = 34668-7) CLOUDY CLEAR H [facility] Specific Aumhljz8334-99-31 22:46:00 * Test Item Value Reference Range Interpretation Comments Urine Specific [place] (test code = 5811-5) 1.030 1.010-1.02 5 H [facility] [id number] 22:46:00* Test Item Value Reference Range Interpretation Comments Urine pH (test code = 64319-4) 6 5-7 [facility] Leukocyte Tmhtkjzk3874-90-00 22:46:00* Test Item Value Reference Range Interpretation Comments Urine Leukocyte Esterase (test code = 5799-2) TRACE NEGATIVE H [facility] Pgpxaiq0694-72-93 22:46:00* Test Item Value Reference Range Interpretation Comments Urine Nitrite (test code = 54764-2) NEGATIVE NEGATIVE [facility] Txncrzj7330-27-86 22:46:00* Test Item Value Reference Range Interpretation Comments Urine Protein (test code = 5804-0) 1+ NEGATIVE [facility] Gl[facility])2018-06-28 22:46:00* Test Item Value Reference Range Interpretation Comments Urine Glucose (UA) (test code = 2349-9) NEGATIVE NEGATIVE [facility] Zfnsxgj8729-87-92 22:46:00* Test Item Value Reference Range Interpretation Comments Urine Ketones (test code = 26807-5) NEGATIVE NEGATIVE [facility] Aspphlkghdha0487-41-29 22:46:00* Test Item Value Reference Range Interpretation Comments Urine Urobilinogen (test code = 06217-2) 0.2 0.2-1 [facility] Epjfkorxa9323-71-04 22:46:00* Test Item Value Reference Range Interpretation Comments Urine Bilirubin (test code = 1978-6) NEGATIVE NEGATIVE [facility] Maopw4349-72-07 22:46:00* Test Item Value Reference Range Interpretation Comments Urine Blood (test code = 63159-3) 2+ NEGATIVE H [facility] [id number] 22:46:00* Test Item Value Reference Range Interpretation Comments Urine WBC (test code = 5821-4) 21-50 0-5 H [facility] [id number] 22:46:00* Test Item Value Reference Range Interpretation Comments Urine RBC (test code = 05757-2) 21-50 0-5 H [facility] Wkisexfq6776-91-24 22:46:00* Test Item Value Reference Range Interpretation Comments Urine Bacteria (test code = 00934-0) MODERATE NONE [facility] Epithelial Ohdkg3633-55-78 22:46:00 * Test Item Value Reference Range Interpretation Comments Urine Epithelial Cells (test code = 10408-0) FEW NONE [facility] Transitional Epithelial Cells 2018-06-28 22:46:00* Test Item Value Reference Range Interpretation Comments Urine Transitional Epithelial Cells (test code = 8249-5) FEW NONE [facility] Renal Epithelial Cecnn0387-65-95 22:46:00* Test Item Value Reference Range Interpretation Comments Urine Renal Epithelial Cells (test code = 52832-8) FEW NON E H [facility] Gnpd8514-28-99 22:46:00* Test Item Value Reference Range Interpretation Comments Urine Test (test code = 2106-3) NEGATIVE NEGATIVE [facility] Jsoih4873-56-34 22:46:00* Test Item Value Reference Range Interpretation Comments Urine Color (test code = 5778-6) YELLOW YELLOW [facility] Mlqawel2003-65-77 22:46:00* Test Item Value Reference Range Interpretation Comments Urine Clarity (test code = 33421-1) CLOUDY CLEAR H [facility] Specific Itvsmsk0202-74-84 22:46:00 * Test Item Value Reference Range Interpretation Comments Urine Specific [place] (test code = 5811-5) 1.030 1.010-1.02 5 H [facility] bF8425-06-31 22:46:00* Test Item Value Reference Range Interpretation Comments Urine pH (test code = 94420-2) 6 5-7 [facility] Leukocyte Pktjfsca7158-80-49 22:46:00* Test Item Value Reference Range Interpretation Comments Urine Leukocyte Esterase (test code = 5799-2) TRACE NEGATIVE H [facility] Ceyffim2450-76-42 22:46:00* Test Item Value Reference Range Interpretation Comments Urine Nitrite (test code = 32958-1) NEGATIVE NEGATIVE [facility] Csxdjiq6935-71-68 22:46:00* Test Item Value Reference Range Interpretation Comments Urine Protein (test code = 5804-0) 1+ NEGATIVE H [facility] Glucose (UA)2018-06-28 22:46:00* Test Item Value Reference Range Interpretation Comments Urine Glucose (UA) (test code = 2349-9) NEGATIVE NEGATIVE [facility] Dyvecos0409-63-20 22:46:00* Test Item Value Reference Range Interpretation Comments Urine Ketones (test code = 03580-7) NEGATIVE NEGATIVE [facility] Ookvsejcfohf2823-87-72 22:46:00* Test Item Value Reference Range Interpretation Comments Urine Urobilinogen (test code = 80083-6) 0.2 0.2-1 [facility] Btqadvvdm8386-88-20 22:46:00* Test Item Value Reference Range Interpretation Comments Urine Bilirubin (test code = 1978-6) NEGATIVE NEGATIVE [facility] Vtmgm6381-04-91 22:46:00* Test Item Value Reference Range Interpretation Comments Urine Blood (test code = 11783-8) 2+ NEGATIVE H [facility] [id number] 22:46:00* Test Item Value Reference Range Interpretation Comments Urine WBC (test code = 5821-4) 21-50 0-5 H [facility] [id number] 22:46:00* Test Item Value Reference Range Interpretation Comments Urine RBC (test code = 33704-7) 21-50 0-5 H [facility] Khakcaxd1344-76-92 22:46:00* Test Item Value Reference Range Interpretation Comments Urine Bacteria (test code = 80832-2) MODERATE NONE H [facility] Epithelial Gcime4465-04-62 22:46:00 * Test Item Value Reference Range Interpretation Comments Urine Epithelial Cells (test code = 91914-7) FEW NONE [facility] Transitional Epithelial Cells 2018-06-28 22:46:00* Test Item Value Reference Range Interpretation Comments Urine Transitional Epithelial Cells (test code = 8249-5) FEW NONE [facility] Renal Epithelial Kdaeq1727-34-60 22:46:00* Test Item Value Reference Range Interpretation Comments Urine Renal Epithelial Cells (test code = 19884-0) FEW NON E H [facility] Qfrh3669-07-76 22:46:00* Test Item Value Reference Range Interpretation Comments Urine Test (test code = 2106-3) NEGATIVE NEGATIVE [facility] Transitional Epithelial Cells 2018-06-28 22:46:00* Test Item Value Reference Range Interpretation Comments Urine Transitional Epithelial Cells (test code = 8249-5) FEW NONE [facility] Renal Epithelial Kjiwc3287-99-39 22:46:00* Test Item Value Reference Range Interpretation Comments Urine Renal Epithelial Cells (test code = 61521-7) FEW NON E H [facility]
--- OUTSIDE RECORDS SUMMARY | 2020-05-05 09:41 | XMS REPORT | Clinical Summary ---
Author Author [facility]MustbinH[facility] Address Unknown Phone Unavailable Care Team Providers Care Hogshead Mat Inspector Name Role Phone PCP Unavailable Allergies Comments Active Allergy Reactions Severity Noted Date Loratadine 06/29/2019 Hives; throat swelling Penicillins Shortness Of High 06/30/2019 Breath Throat swelling; hives Ceftriaxone Shortness Of High 06/30/2019 Breath Medications End Date Status Medication Sig Dispensed Refills Start Date Active escitalopram oxalate Take 10 mg by 0 (LEXAPRO) 10 MG tablet mouth daily. 07/10/2019 acetaminophen-codeine Take 1 tablet 30 tablet 0 (TYLENOL #3) 300-30 mg by mouth 0 per tablet every 4 (four) hours as needed for up to 10 days. Max Daily Amount: 6 tablets Active Problems Problem Noted Date Cholecystitis 06/30/2019 Comments Yes Encounters Care Team Description Date Type Specialty Paddy Ridley MD Murugan, Shobana, MD 06/30/2019 Anesthesia Event Lars Grover MD LAPAROSCOPY,CHOLECYSTECTOMY 06/30/2019 Surgery Lars Grover MD 06/30/2019 Hospital Encounter after 05/05/2019 Social History Date Tobacco Use Types Packs/Day Years Used Current Every Day Smoker 0.5 10 Smokeless Tobacco: Never Used Drinks/Week oz/Week Comments Alcohol Use No Alcohol Habits Answer Date Recorded How often do you have a drink containing alcohol? Never 06/30/2019 How many drinks containing alcohol do you have on No t asked a typical day when you are drinking? How often do you have six or more drinks on one Not asked occasion? Comments Yes Sex Assigned at Date Recorded Not on file Last Filed Vital Signs Reading Time Taken Comments Vital Sign 127/70 06/30/2019 4:25 PM [employer] [employer] Blood Pressure 73 06/30/2019 4:25 PM [employer] [facility] Pulse 37.2 C (99 F) 06/30/2019 4:25 PM [employer] [facility] Temperature 14 06/30/2019 4:25 PM [facility] [employer] Respiratory Rate 100% 06/30/2019 4:25 PM [employer] [facility] Oxygen Saturation - - Inhaled Oxygen Concentration 103.2 kg (227 lb 8 oz) 06/30/2019 12:55 PM [employer] [facility] Weight 165.1 cm (5' 5") 06/30/2019 12:53 PM [employer] Height 37.86 06/30/2019 12:53 PM [facility] Body Mass Index Plan of Treatment Health Maintenance Due Date Last Done Comments PNEUMOCOCCAL VACCINE 0-64 2002 YRS (1 of 1 - PPSV23) LIPID PANEL 2016 CERVICAL CANCER SCREENING 2017 PAP ONLY (Age 21-65) INFLUENZA VACCINE (#1) 2020 Procedures Comments Procedure Name Priority Date/Time Associated Diag nosis TISSUE EXAM AP Routine 06/30/2019 3:04 PM [facility] [employer] LAPAROSCOPY,CHOLECYSTECTO 06/30/2019 Calculus of gallbladder MY 2:05 PM [employer] without cholecystit is without obstruction Case Notes REQ 1 HR POCT , URINE Routine 06/30/2019 1:15 PM [employer] after 05/05/2019 Results * Tissue Exam (06/30/2019 3:04 PM [employer]) Case Report Surgical Pathology Report [facility] Case: [id number] [facility] Authorizing Provider: Lars Grover MD Collected: 06/30/2019 1504 Ordering Location: [facility] Received: 06/30/2019 1648 SERVICES Pathologist: Renu Chahal MD Specimen: Gallbladder, gallbladder and contents DIAGNOSIS A. GALLBLADDER, [facility] Electronicall y CHOLECYSTECTOMY: [facility] signed by Tirso, - CHRONIC CHOLECYSTITIS [facility] MD Renu on WITH CHOLELITHIASIS AND 07/02/2019 at 11:09 CHOLESTEROLOSIS. AM Signing Pathologist Direct Phone Line: [phone] CPT Code(s) [address] [facility] [place] [facility]OSS Received in formalin labeled JERI MEDEIROS'S DESCRIPTION "gallbladder" is a non-intact [facility] gallbladder measuring 6 x 2.5 MEDICAL CENTER x 1.5 cm. An attached cystic duct [...] 0.2 cm. The gallbladder wall is serially sectioned and no masses or lesions are identified. The wall thickness is up to 0.3 cm. [employer] Install[employer] sections are submitted in cassettes A1-A2. Ink code: Cystic duct, hannah; hepatic bed, black; serosa, green. Section code: A1 cystic duct margin and sales representative public utilities section of the gallbladder wall; A2 sales representative public utilities section of the gallbladder wall adjacent to area of disruption. CYB/bc MICROSCOPIC Performed. [facility] Gross [facility] assessment was [facility] BCM performed at Pathology, [address] [place] [id number], Technical [facility] component was [facility] BC performed at Pathology, [address] [place] [id number], Professional [facility] component was [facility] BCM performed at Pathology, [address] [place] [id number], Specimen Tissue - Gallbladder structure (body structure) Performing Organization Address City/State/Zipcode Ph one Number [address] [facility] [place] * POCT , urine (06/30/2019 1:15 PM [employer]) Test Negative Urine, POC Control line Yes present?, POC Background Yes clear?, POC UPT [place] [phone] Lot #, POC UPT [place] 11/06/20 Expiration Date, POC Specimen after 05/05/2019 Insurance Type Payer Benefit Subscriber ID Effective Phone Address Plan / Dates Group PPO BLUE CROSS/BLUE SHIELD BCBS PPO [id number] 2019-P [phone] [address] EPO resent [id number] [place] [phone] Advance Directives For more information, please contact: [phone] Date Inactivated Comments Code Status Date Activated 06/30/2019 9:31 PM Full Code 06/30/2019 1:21 PM This code status was determined by: Patient
--- OUTSIDE RECORDS SUMMARY | 2020-05-05 09:41 | XMS REPORT | Continuity of Care Document ---
Author Author [employer] [employer] Address Unknown Phone Unavailable Care Team Providers Care Manager Intern Name Role Phone [facility] [employer] Unavailable Un available Problems Problem Status Onset Date Classification Date Reported Comments Source Allergy, unspecified, initial encounter 08/31/2016 09/03/2016 [facility] SEIZURES Active 08/31/2016 [facility] Medications Medication Details Route Status Patient Instructions Ordering Provider Order Date Source Famotidine 10 MG Oral Tablet 1 0 mg = 1 tab, PO, BID, # 10 tab, 0 Refill(s) Active 09/01/2016 [facility] Diphenhydramine Hydrochloride 25 MG Oral Tablet [Benadryl] 25 mg = 1 tab, PO, QID, X 5 day, # 20 ta b, 0 Refill(s) Active 09/01/2016 [facility] Famotidine 10 MG Oral Tablet 1 0 mg = 1 tab, PO, BID, # 10 tab, 0 Refill(s) Active 09/01/2016 [facility] 0.3 ML Epinephrine 1 MG/ML Prefilled Syringe [Epipen] 0.3 mg, IM, ONCE, # 2 pen(s), 0 Refill(s) Active 09/01/2016 [facility] nter Diphenhydramine Hydrochloride 25 MG Oral Tablet [Benadryl] 25 mg = 1 tab, PO, TID, X 5 day, # 15 ta b, 0 Refill(s) Active 09/01/2016 [facility] {21 (Methylprednisolone 4 MG Oral Tablet [Medrol]) } Pack [Medrol Dosepak] See Instructions, PO, Take by mouth as d irected on label., # 1 Pack, 0 Refill(s) Active 09/01/2016 [facility] methylPREDNISolone SODium SUCCinate 125 mg, Route: IVP, ONCE, Dosing Weight 81.818, kg, Priority: STAT, Start date: 08/31/16 19:08:00 CDT, Stop date: 08/31/16 19:08:00 CDT Inactive 09/01/2016 [facility] nter Famotidine Notes: (Same as: Pe pcid) Can be dilute in 5- 10cc NS IVP: Slow IV push over at least 2 minutes. Inactive 09/01/2016 [facility] Allergies, Adverse Reactions, Alerts Substance Category Reaction Severity Reaction type Status Date Reported Comments Source penicillins Assertion Drug allergy Active [facility] Immunizations No Data Provided for This Section Results No Data Provided for This Section Pathology Reports No Data Provided for This Section Diagnostic Reports No Data Provided for This Section Consultation Notes No Data Provided for This Section Discharge Summaries No Data Provided for This Section History and Physicals No Data Provided for This Section Vital Signs Vital Sign Value Date Comments Source Temperature Oral (F) 97.2 F 09/01/2016 [facility] Systolic (mm Hg) 112 09/01/2016 [facility] Diastolic (mm Hg) 68 09/01/2016 [facility] Heart Rate 98 09/01/2016 [facility] Respitory Rate 18 09/01/2016 [facility] Systolic (mm Hg) 115 09/01/2016 [facility] Diastolic (mm Hg) 74 09/01/2016 [facility] Respitory Rate 18 09/01/2016 [facility] Heart Rate 103 09/01/2016 [facility] Temperature Oral (F) 97.6 F 09/01/2016 [facility] BMI Calculated 30.02 08/31/2016 [facility] Weight 81.818 08/31/2016 [facility] Temperature Oral (F) 98.8 F 08/31/2016 [facility] Height 165.1 cm 08/31/2016 [facility] Respitory Rate 16 08/31/2016 [facility] Systolic (mm Hg) 120 08/31/2016 [facility] Diastolic (mm Hg) 81 08/31/2016 [facility] Heart Rate 100 08/31/2016 [facility] Encounters Location Location Details Encounter Type Encounter Number Reason For Visit Attending Provider ADM Date DC Date Status Source [facility] Emergency [id number] Patria Painter 08/31/2016 09/01/2016 [facility] Procedures No Data Provided for This Section Assessment and Plan No Data Provided for This Section Plan of Care No Data Provided for This Section Social History Social History Date Source Social History TypeResponse Smoking Status Light tobacco smoker; Ready to change: No; Concerns about tobacco use in household: No; Exposure to Tobacco Smoke None; Cigarette Smoking Last 365 Days No; Reg Smoking Cessation Counseling No 09/01/2016 [facility] Family History No Data Provided for This Section Advance Directives No Data Provided for This Section Functional Status No Data Provided for This Section
--- NOTE | 2020-05-05 10:15 | Diagnostic Imaging Report ---
EXAMINATION: CHEST SINGLE (PORTABLE) INDICATION: Chest pain COMPARISON: CT abdomen and pelvis of 06/12/2019 FINDINGS: LINES/TUBES:None LUNGS:The lungs are well-inflated. No focal consolidation or pulmonary edema. PLEURA:No pleural effusion or pneumothorax. MEDIASTINUM:The cardiomediastinal silhouette appears normal in size and shape. BONES/SOFT TISSUES:No acute osseous injury. ABDOMEN:No free air under the diaphragm. IMPRESSION: No focal pneumonia or pulmonary edema. Signed by: Sohail Liz MD on 05/05/2020 10:12 AM
[2020-05-05 10:22] LABS: ALANINE AMINOTRANSFERASE 36 IU/L (0-55); ALBUMIN 3.9 g/dL (3.5-5.0); ALBUMIN/GLOBULIN RATIO 1.1 (0.8-2.0); ALKALINE PHOSPHATASE 72 IU/L (40-150); ANION GAP 13.4 mmol/L (8-16); BLOOD UREA NITROGEN 10 mg/dL (7-26); BUN/CREATININE RATIO 13 (6-25); CARBON DIOXIDE 24 mmol/L (22-29); CHLORIDE 108 mmol/L (98-107); CREATININE, SERUM 0.76 mg/dL (0.57-1.11); EST GLOMERULAR FILTRATION RATE > 60 ML/MIN (60-); GLUCOSE 92 mg/dL (74-118); POTASSIUM 4.4 mmol/L (3.5-5.1); SODIUM 141 mmol/L (136-145)
--- NOTE | 2020-05-05 11:13 | Diagnostic Imaging Report ---
EXAMINATION: NECK SOFT TISSUE INDICATION: Chest pain COMPARISON: None FINDINGS: The prevertebral soft tissues appear normal in thickness. No acute osseous injury. Mild reversal of normal cervical lordosis. No radiopaque foreign body. IMPRESSION: Unremarkable neck soft tissues. Signed by: Sohail Liz MD on 05/05/2020 11:10 AM
== END 2020-05-05 11:47 | disposition home or self-care (01) ==
LOC: ER 09:19
DX: J02.0 Streptococcal pharyngitis (principal); R07.9 Chest pain, unspecified; B95.0 Streptococcus, group A, as the cause of diseases classified elsewhere; Z72.0 Tobacco use
CPT/HCPCS: 36415; 70360; 71045; 80053; 83518; 84484; 84702; 85025; 85379; 93005; 99284; J7030